=== PATIENT | female | born 1955 | race Caucasian/White ===

== ENCOUNTER 2019-08-08 09:43 | Outpatient (CLI) | payer BC, SELFPAY ==
--- NOTE | 2019-08-08 11:00 | NEURO_ITS ---
Patient Number: [id number] Impression: # Complains of left hand numbness. # Left Carpal Tunnel Syndrome. # No ulnar neuropathy. # Normal needle/EMG exam. Nerve Conduction Studies Anti Sensory Summary Table Stim Site NR Peak (ms) P-T Amp (?V) Site1 Site2 Delta-P (ms) Dist (cm) Franky (m/s) Left Median Anti Sensory (2-3nd Digit) Wrist 3.5 46.2 Wrist 2-3nd Digit 3.5 14.0 40 Wrist 3.7 42.2 Wrist 2-3nd Digit 3.5 14.0 40 Left Radial Anti Sensory (Base 1st Digit) Wrist 1.7 38.0 Wrist Base 1st Digit 1.7 0.0 Left Ulnar Anti Sensory (5th Digit) Wrist 2.0 47.7 Wrist 5th Digit 2.0 14.0 70 Motor Summary Table Stim Site NR Onset (ms) O-P Amp (mV) Site1 Site2 Delta-0 (ms) Dist (cm) Franky (m/s) Left Median Motor (Abd Poll Brev) Wrist 4.4 2.6 Elbow Wrist 5.1 27.0 53 Elbow 9.5 2.4 Left Ulnar Motor (Abd Dig Minimi) Wrist 1.9 5.9 A Elbow Wrist 4.4 28.0 64 A Elbow 6.3 5.9 F Wave Studies NR F-Lat (ms) L-R F-Lat (ms) Left Median (Mrkrs) (Abd Poll Brev) 27.91 Left Ulnar (Mrkrs) (Abd Dig Min) 24.57 EMG Side Muscle Nerve Root Ins Act Fibs Amp Dur Recrt Comment Left 1stDorInt Ulnar C8-T1 Nml Nml Nml Nml Nml Left Ext Indicis Radial (Post Int) C7-8 Nml Nml Nml Nml Nml Left Ext Digitorum Radial (Post Int) C7-8 Nml Nml Nml Nml Nml Left BrachioRad Radial C5-6 Nml Nml Nml Nml Nml Left PronatorTeres Median C6-7 Nml Nml Nml Nml Nml Left Abd Poll Brev Median C8-T1 Nml Nml Nml Nml Nml MTDD
== END 2019-08-08 09:44 | disposition home or self-care (01) ==
PROVIDERS: PCP Family Medicine; Visit Provider Surgery Plastic and Reconstructive Surgery
DX: G56.02 Carpal tunnel syndrome, left upper limb (principal)
CPT/HCPCS: 95886; 95909

== ENCOUNTER → 2020-05-21 14:09 | Outpatient (CLI) | payer BC, SELFPAY ==
--- NOTE | ~2020-05-21 | MM_ITS ---
EXAMINATION: MM screening rachell BI w bree HISTORY: Screening TECHNIQUE: Craniocaudal and mediolateral oblique 3-D tomosynthesis images were obtained and synthetic 2-D images were generated. CAD analysis was submitted and interpreted. COMPARISON: Comparison to multiple prior studies sequentially, with oldest reviewed study dated 04/15. BREAST PARENCHYMAL COMPOSITION: There are scattered areas of fibroglandular density. FINDINGS: There is no evidence of suspicious mass, calcification, or architectural distortion to sugg est malignancy in either breast. There has been no suspicious interval change. IMPRESSION: 1. No mammographic evidence of malignancy. 2. Recommend routine screening mammography in one year. BI-RADS Category 1: Negative Reviewed, dictated and finalized at location A. STMAS TREE FARMER
== END ==
PROVIDERS: PCP Family Medicine; Visit Provider Nurse Practitioner Family
DX: Z12.31 Encounter for screening mammogram for malignant neoplasm of breast (principal)
CPT/HCPCS: 77063; 77067

== ENCOUNTER 2020-08-19 11:34 | Outpatient (CLI) | payer MEDICARE, SELFPAY | END 2020-08-19 11:35 | disposition home or self-care (01) | LOC: ANHCOVIDVC 11:34 | PROVIDERS: PCP Family Medicine | DX: Z23 Encounter for immunization (principal) | CPT/HCPCS: 0001A; 91300 ==

== ENCOUNTER → 2020-08-22 08:36 | Outpatient (CLI) | payer MEDICARE, SELFPAY ==
--- NOTE | ~2020-08-22 | CT_ITS ---
EXAMINATION: CT lung screening DATE: 08/22/2020 08:54 INDICATION: Personal history of tobacco dependence, 40 pack year history TECHNIQUE: Computed tomography (CT) of the chest was performed without intravenous contrast. The dose -length product (DLP) was 68.56 mGy-cm. Automated exposure control and iterative reconstruction techn ique were employed. COMPARISON: None FINDINGS: Small nodules of the right upper lobe measure up to 2 mm. The lungs are free of acute opaci ties. There is mild emphysema. No pleural effusion or pneumothorax is identified. No pathologically e nlarged thoracic lymph nodes are identified. The heart size is normal. Calcified coronary artery athe rosclerosis is noted. There is mild thoracic spondylosis. IMPRESSION: 1. Lung-RADS category 1: Negative. Continue annual screening with noncontrast low-dose chest CT in 12 months. Reviewed, dictated and finalized at location A. OR SPECIALIST IMPRESSION: 1. Lung-RADS category 1: Negative. Continue annual screening with noncontrast l ow-dose chest CT in 12 months.
== END ==
PROVIDERS: PCP Family Medicine; Visit Provider Family Medicine
DX: Z12.2 Encounter for screening for malignant neoplasm of respiratory organs (principal); Z87.891 Personal history of nicotine dependence
CPT/HCPCS: 71271

== ENCOUNTER 2020-09-09 11:34 | Outpatient (CLI) | payer MEDICARE, SELFPAY | END 2020-09-09 11:35 | disposition home or self-care (01) | LOC: ANHCOVIDVC 11:34 | PROVIDERS: PCP Family Medicine | DX: Z23 Encounter for immunization (principal) | CPT/HCPCS: 0002A; 91300 ==

== ENCOUNTER 2020-11-06 14:04 | Outpatient (CLI) | payer MEDICARE, SELFPAY ==
--- NOTE | ~2020-11-06 | DEXA_ITS ---
Bone Density Report Name: Genna Vasquez Age: 65 Sex: Female Ethnicity: White Date of : 1955 Indication: postmenopausal; height loss; hysterectomy; Referring Provider: Kay Duran Study: Bone densitometry was performed. Exam Date: November 06, 2020 Accession number: [id number] Bone Density: Region BMD T-score Z-score Classification AP Spine (L1-L4) 1.040 -0.1 1.7 Normal Femoral Neck (Left) 0.649 -1.8 -0.3 Osteopenia Total Hip (Left) 0.803 -1.1 0.1 Osteopenia Total Hip Bilateral Avg 0.810 -1.1 0.2 Osteopenia Femoral Neck (Right) 0.661 -1.7 -0.2 Osteopenia Total Hip (Right) 0.816 -1.0 0.2 Normal World Health Organization criteria for BMD impression classify patients as: Normal (T-score at or above -1.0), Osteopenia (T-score between -1.0 and -2.5), or Osteoporosis (T-score at or below -2.5). 10-year Fracture Risk(1): Major Osteoporotic Fracture 9.6% Hip Fracture 1.2% Reported Risk Factors: [place] (), Neck BMD=0.649, BMI=27.2 (1) FRAX(R) Version 3.08. Fracture probability calculated for an untreated patient. Fracture probability may be lower if the patient has received treatment. Previous Exams: Region Exam Age BMD T-score BMD Change BMD Change Date g/cm2 vs Baseline vs Previous AP Spine(L1-L4) 11/06/2020 65 1.040 -0.1 0.041(4.1%)# 0.041(4.1%)# 01/09/2010 54 0.999 -0.4 Total Hip(Left) 11/06/2020 65 0.803 -1.1 -0.043(-5.1%)# -0.043(-5.1%)# 01/09/2010 54 0.847 -0.8 Total Hip(Right) 11/06/2020 65 0.816 -1.0 -0.072(-8.1%)# -0.072(-8.1%)# 01/09/2010 54 0.888 -0.4 *Denotes significance at 95% confidence level, LSC for AP Spine = 0.022 g/cm2, LSC for Total Hip = 0.027 g/cm2 Clinical Information Provided by Patient: Has used the following medications: Vitamin D, Calcium Has the following medical conditions: Hysterectomy Patient maximum height was 62 Menopause Age: 38 Drinks caffeinated beverages Onset of menses at age 15 Number of children 3 Impression: The patient has low bone mass, based on the Left Femoral Neck T-score. The patient has an estimated ten-year risk of hip fracture of 1.2% and an estimated ten-year risk of major fracture of 9.6%, based on the WHO FRAX algorithm. No significant bone loss was observed. Discussion: BONE DENSITY IS LOW AT ONE OR MORE SKELETAL SITES. This patient's lowest T-score is low at one or more skeletal sites. It meets the World Health Organization's (WHO) criteria
== END 2020-11-06 14:05 | disposition home or self-care (01) ==
LOC: ANHIMG 14:05
PROVIDERS: PCP Family Medicine; Visit Provider Family Medicine
DX: Z78.0 Asymptomatic menopausal state (principal); M85.852 Other specified disorders of bone density and structure, left thigh; M85.851 Other specified disorders of bone density and structure, right thigh
CPT/HCPCS: 77080

== ENCOUNTER → 2021-08-07 09:27 | Outpatient (CLI) | payer MEDICARE, SELFPAY ==
--- NOTE | ~2021-08-07 | MM_ITS ---
EXAMINATION: MM screening rachell BI w bree HISTORY: Screening mammogram TECHNIQUE: Craniocaudal and mediolateral oblique 3-D tomosynthesis images were obtained and synthetic 2-D images were generated. CAD analysis was submitted and interpreted. COMPARISON: 05/21/2020, 08/19/2018, 08/12/2017 bilateral screening mammogram examinations BREAST PARENCHYMAL COMPOSITION: The breasts are almost entirely fatty. FINDINGS: A new approximately 3.4 mm mass is noted in the upper outer left breast at mid depth. Diagn ostic left mammogram is recommended, with ultrasound if required. No suspicious new or developing density of either breast is noted otherwise. No malignant calcificati on, skin thickening or retraction or other significant change. IMPRESSION: 1. New approximately 3.4 mm mass in upper outer left breast 2. Diagnostic left mammogram is recommended, with ultrasound if required BI-RADS Category 0: Incomplete: Needs additional imaging evaluation. Reviewed, dictated and finalized at location A. VE TAILOR
== END ==
PROVIDERS: Visit Provider Family Medicine
DX: Z12.31 Encounter for screening mammogram for malignant neoplasm of breast (principal); R92.8 Other abnormal and inconclusive findings on diagnostic imaging of breast
CPT/HCPCS: 77063; 77067

== ENCOUNTER → 2021-08-21 09:43 | Outpatient (CLI) | payer MEDICARE, SELFPAY ==
--- NOTE | ~2021-08-21 | MMUS_ITS ---
EXAMINATION: MM diagnostic rachell LT w bree, US breast LT limited HISTORY: Follow-up left breast mass TECHNIQUE: Additional 3-D tomosynthesis images of the left breast were performed and synthetic 2-D im ages were generated. CAD analysis was submitted and interpreted. High resolution Limited left breast ultrasound was performed. COMPARISON: 08/07/2021 BREAST PARENCHYMAL COMPOSITION: Breast composed of scattered areas of fibroglandular density. FINDINGS: MAMMOGRAPHIC FINDINGS: There are no suspicious masses, calcifications or architectural distortion in the left breast to sugg est malignancy. ULTRASOUND: Limited left breast ultrasound: At 1:00, 6 cm from the nipple there is a 2 mm cyst. No suspicious mas ses to suggest malignancy. IMPRESSION: 1. No evidence for malignancy in the left breast. 2. Routine yearly screening mammogram and regular clinical breast examination are recommended. BI-RADS Category 2: Benign finding(s). Reviewed, dictated and finalized at location A. EF MASTER IMPRESSION: 1. No evidence for malignancy in the left breast. 2. Routine yearly screening mammogram and regular clinical breast examination a re recommended. BI-RADS Category 2: Benign finding(s).
== END ==
PROVIDERS: PCP Family Medicine; Visit Provider Family Medicine
DX: R92.8 Other abnormal and inconclusive findings on diagnostic imaging of breast (principal)
CPT/HCPCS: 76642; 77061; 77065; G0279

== ENCOUNTER 2022-02-05 09:17 | Outpatient (CLI) | payer MEDICARE, SELFPAY ==
[2022-02-05 18:59] LABS: Alanine Aminotransferase 23 U/L (6-35); Albumin Level 4.3 g/dL (3.5-5.1); Alkaline Phosphatase 55 U/L (38-126); Anion Gap 8 mmol/L (8-16); Aspartate Amino Transferase 32 U/L (14-36); Bilirubin,Total 0.6 mg/dL (0.2-1.3); Blood Urea Nitrogen 16 mg/dL (7-17); Calcium 8.7 mg/dL (8.4-10.2); Carbon Dioxide 28 mmol/L (22-30); Chloride 100 mmol/L (98-107); Estimated Glomerular Filt Rate > 60; Glucose 92 mg/dL (65-110); Potassium 4.4 mmol/L (3.4-5.0); Sodium 136 mmol/L (137-145)
== END 2022-02-05 09:18 | disposition home or self-care (01) ==
LOC: ANHGOSHLAB 09:20
PROVIDERS: PCP Family Medicine; Visit Provider Family Medicine
DX: G47.00 Insomnia, unspecified (principal); E78.5 Hyperlipidemia, unspecified; Z79.899 Other long term (current) drug therapy
CPT/HCPCS: 36415; 80053

== ENCOUNTER 2022-07-20 09:00 | Outpatient (NON) | payer MEDICARE, SELFPAY | END 2022-07-20 09:01 | disposition home or self-care (01) | LOC: ANHLAB 07-21 09:50 | PROVIDERS: PCP Family Medicine; Visit Provider Internal Medicine Gastroenterology | DX: Z12.11 Encounter for screening for malignant neoplasm of colon (principal); D12.6 Benign neoplasm of colon, unspecified | CPT/HCPCS: 88305 ==

== ENCOUNTER 2022-07-20 09:12 | Day surgery (SDC) | payer MEDICARE, SELFPAY ==
[2022-05-13 10:12] VITALS: BMI 28.0
[2022-07-01 12:59] VITALS: BMI 29.1
--- NOTE | 2022-07-20 07:25 | WPDANESEPPF ---
Anes - Initial Pre Proc Eval Procedure: Operation Date: 07/20/22 11:30 Proposed Procedures p Screening Colonoscopy - Cm Sanchez MD Date/Time: 07/20/22 07:25 Surgeon: Dionicio Delarosa MD Pre Op Diagnosis: Neoplasm Screening Patient Data Age: 66 Gender: F Height: 1.55 m Weight: 70 kg Allergies Allergy/AdvReac Type Severity Reaction Status Date / Time No Known Allergies Allergy Mild Verified 07/20/22 10:15 Home Medications Medication Instructions Recorded Confirmed Type famotidine 20 mg tablet 20 mg PO DAILY 03/04/20 07/20/22 History doxycycline hyclate 20 mg tablet 20 mg PO Q12H 07/31/20 07/20/22 History multivit with 1 tablet PO DAILY #30 tabs 08/26/20 07/20/22 Rx dsfsuvhw-vlwl-CV-lutein 8 mg iron-400 mcg-300 mcg tablet (Centrum Silver Women) cholecalciferol (vitamin D3) 25 25 mcg PO DAILY #30 caps 06/02/21 07/20/22 Rx mcg (1,000 unit) capsule ascorbate calcium (vitamin C) 500 500 mg PO DAILY 08/07/21 07/20/22 History mg tablet clobetasol 0.05 % topical cream 1 applic topical BID #30 grams 12/17/21 07/20/22 Rx oxybutynin chloride 15 mg See Rx Instructions .Route 07/03/22 07/20/22 Rx tablet,extended release 24 hr .COMPLEX #90 tabs simvastatin 40 mg tablet 40 mg PO QHS #90 tabs 07/03/22 07/20/22 Rx duloxetine 60 mg capsule,delayed 60 mg PO DAILY #90 caps 07/07/22 07/20/22 Rx release zolpidem 10 mg tablet 10 mg PO QHS #90 tabs 07/15/22 07/20/22 Rx Patient hx anesthesia problems: none Family hx anesthesia problems: none Results Review: All pre-operative results and documents have been reviewed as part of the pre-operative evaluation. [facility] Past Medical History Medical History (Updated 07/20/22 @ 07:26 by Todd Isbell DO) Cervical spondylosis Dental root implant present Depression Dyslipidemia GERD without esophagitis Insomnia OAB (overactive bladder) PRETTY (obstructive sleep apnea) Osteoarthrosis Periodontal disease, unspecified Vitamin D deficiency Surgical History Surgical History History of carpal tunnel release (~07/2019) Right History of delivery 1985 History of hysterectomy 1989 History of ovarian cystectomy 1977 Family History Family History Other Family history of cardiovascular disease Social History Social History Smoking packs per day: 1 Smoking cigarettes per day: 20.0 Years smoked: 40 Smoking pack-years: 40.00 Smoking status: Former smoker Tobacco type: cigarettes Second hand tobacco smoke exposure: No Smoking end date: 06/14/12 Alcohol intake: never Alcohol use details: NONE SINCE 2007 Substance use: never Substance use type: does not use Living arrangements: with family Additional living arrangements comments: With Occupation/Education: retired Gender identity (if verbalized by the patient): Female Spiritual care concerns: No Anes - Eval Final PreProcedure Day of Procedure 07/20/22 07:25 Patient weight: overweight Heart: regular rate and rhythm Lungs: clear to auscultation Airway: Mallampati scale class II Neurological: alert and oriented Last oral intake: >/= 8 hours ASA classification: III Emergent: no Anesthetic plan: proceed Anesthesia type and monitoring: general GIVS and standard monitoring Results Review: All pre-operative results and documents have been reviewed as part of the pre-operative evaluation. Informed Consent: The patient's anesthetic plan and its attendant risks and benefits were discussed with the patient/family/POA. Questions were solicited and answers provided to the satisfaction of the patient/family/POA.
[2022-07-20 10:05] VITALS: BP 119/89; PULSE 91; RESP 20; TEMP 36.1; O2SAT 100
[2022-07-20] MEDS: LACTATED RINGERS 1,000 ML 150 ML IV CONT (10:25)
--- NOTE | 2022-07-20 10:39 | PM.HPGS ---
History of Present Illness History of Present Illness Consent: Risks, benefits, and alternatives have been discussed and questions answered. Patient agrees to proceed with procedure. Chief complaint: Neoplasm Screening Narrative: Genna Vasquez is a 66 year old female Referred for colon cancer screening. Her mother had colon polyps. Review of Systems Review of Systems: All systems reviewed & are unremarkable except as noted in HPI and below PMFSH Past Medical History Medical History Cervical spondylosis Dental root implant present Depression Dyslipidemia GERD without esophagitis Insomnia OAB (overactive bladder) PRETTY (obstructive sleep apnea) Osteoarthrosis Periodontal disease, unspecified Vitamin D deficiency Surgical History Surgical History History of carpal tunnel release (~07/2019) Right History of delivery 1984 History of hysterectomy 1989 History of ovarian cystectomy 1977 Family History Family History Other Family history of cardiovascular disease Social History Social History Smoking packs per day: 1 Smoking cigarettes per day: 20.0 Years smoked: 40 Smoking pack-years: 40.00 Smoking status: Former smoker Tobacco type: cigarettes Second hand tobacco smoke exposure: No Smoking end date: 06/14/12 Alcohol intake: never Alcohol use details: NONE SINCE 2007 Substance use: never Substance use type: does not use Living arrangements: with family Additional living arrangements comments: With Occupation/Education: retired Gender identity (if verbalized by the patient): Female Spiritual care concerns: No Meds Home Medications and Allergies Home Medications Medication Instructions Recorded Confirmed Type famotidine 20 mg tablet 20 mg PO DAILY 03/04/20 07/20/22 History doxycycline hyclate 20 mg tablet 20 mg PO Q12H 07/31/20 07/20/22 History multivit with 1 tablet PO DAILY #30 tabs 08/26/20 07/20/22 Rx bkudrkif-jgsv-ZX-lutein 8 mg iron-400 mcg-300 mcg tablet (Centrum Silver Women) cholecalciferol (vitamin D3) 25 25 mcg PO DAILY #30 caps 06/02/21 07/20/22 Rx mcg (1,000 unit) capsule ascorbate calcium (vitamin C) 500 500 mg PO DAILY 08/07/21 07/20/22 History mg tablet clobetasol 0.05 % topical cream 1 applic topical BID #30 grams 12/17/21 07/20/22 Rx oxybutynin chloride 15 mg See Rx Instructions .Route 07/03/22 07/20/22 Rx tablet,extended release 24 hr .COMPLEX #90 tabs simvastatin 40 mg tablet 40 mg PO QHS #90 tabs 07/03/22 07/20/22 Rx duloxetine 60 mg capsule,delayed 60 mg PO DAILY #90 caps 07/07/22 07/20/22 Rx release zolpidem 10 mg tablet 10 mg PO QHS #90 tabs 07/15/22 07/20/22 Rx Allergies Allergy/AdvReac Type Severity Reaction Status Date / Time No Known Allergies Allergy Mild Verified 07/20/22 10:15 Vital Signs Vital Signs - 24 hr 07/20/22 10:05 Temperature 36.1 C L Pulse Rate 91 Respiratory Rate 20 Blood Pressure 119/89 Pulse Oximetry 100 Oxygen Delivery Room Air Exam Resp: Auscultation: clear to auscultation bilaterally Cardio: Rate: regular rate Rhythm: regular rhythm GI: GI Palp: Yes Soft to palpation and No Tenderness to palpation present (GI) Assessment and Plan Assessment and plan (1) Colon cancer screening: Code(s): Z12.11 - Encounter for screening for malignant neoplasm of colon Status: Acute Assessment and Plan: Colonoscopy with possible biopsy or polypectomy or cautery or injection of substances.
[2022-07-20 12:25] VITALS: BP 132/66; PULSE 88; RESP 16; O2SAT 97
[2022-07-20 12:35] VITALS: BP 121/64; PULSE 74; RESP 16; O2SAT 100
[2022-07-20 12:45] VITALS: BP 134/75; PULSE 70; RESP 16; O2SAT 100
--- NOTE | 2022-07-20 12:47 | SUR.PHASEII ---
PT AWAKE AND ALERT. EATING AND DRINKING. TALKATIVE. DENIES PAIN.
--- NOTE | 2022-07-20 13:04 | SUR.PHASEII ---
PT DRESSED AND RELAXING ON STRETCHER. AWAKE AND ALERT. DENIES PAIN. WAITING FOR SPOUSE TO ARRIVE
--- NOTE | 2022-07-20 13:50 | WPDANESPN ---
Anes - Prog Note Post-Op Date/Time: 07/20/22 13:50 Cardiovascular status: normal Respiratory status: normal Airway patency: baseline Mental status: baseline Post-Op hydration status: normal Vital Signs: Last Vital Signs Temp 36.1 C L 07/20/22 10:05 Pulse 70 07/20/22 12:45 Resp 16 07/20/22 12:45 BP 134/75 07/20/22 12:45 Pulse Ox 100 07/20/22 12:45 O2 Del Method Room Air 07/20/22 12:45 Pain Score (VAS): 0 I/O: Intake & Output 07/19/22 07/20/22 07/20/22 23:59 07:59 15:59 Intake Total 500 Balance 500 Post-procedural complaints: none Patient Feedback: Patient satisfied with anesthetic care. Other Findings: Patient vital signs back to baseline. Patient denies nausea and vomiting. Patient's pain under control. Patient OK for discharge.
== END 2022-07-20 13:19 | disposition home or self-care (01) ==
PROVIDERS: PCP Family Medicine; Visit Provider Internal Medicine Gastroenterology
PROC: 0DJD8ZZ Inspection of Lower Intestinal Tract, Via Natural or Artificial Opening Endoscopic (ICD-10-PCS; CPT 45378; principal; 2022-07-20 11:30)
DX: Z12.11 Encounter for screening for malignant neoplasm of colon (principal)
CPT/HCPCS: 45380

== ENCOUNTER → 2022-08-13 09:05 | Outpatient (CLI) | payer MEDICARE, SELFPAY ==
--- NOTE | ~2022-08-13 | XR_ITS ---
Clinical Indication: Cough PA and lateral views of the chest: Comparison: 01/02/2009 Findings: The lungs are clear, without evidence of focal consolidation or pleural effusion. Cardiome diastinal silhouette is within normal limits. Bones and soft tissues are unremarkable. Impression: Normal chest. Reviewed, dictated and finalized at [facility]. 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
== END ==
PROVIDERS: PCP Family Medicine; Visit Provider Nurse Practitioner Family
DX: R05.9 Cough, unspecified (principal)
CPT/HCPCS: 71046

== ENCOUNTER 2022-08-26 08:19 | Outpatient (CLI) | payer MEDICARE, SELFPAY ==
[2022-08-26 18:37] LABS: Kit Draw Collected
== END 2022-08-26 08:20 | disposition home or self-care (01) ==
LOC: ANHGOSHLAB 08:20
PROVIDERS: PCP Family Medicine; Visit Provider Nurse Practitioner Family
DX: E03.9 Hypothyroidism, unspecified (principal); E78.5 Hyperlipidemia, unspecified; I10 Essential (primary) hypertension
CPT/HCPCS: 36415

== ENCOUNTER 2023-01-04 07:20 | Outpatient (CLI) | payer MEDICARE, SELFPAY ==
--- NOTE | ~2023-01-04 | DEXA_ITS ---
Bone Density Report Name: KENJI HINOJOSA Age: 67 Sex: Female Ethnicity: White Date of : 1955 Indication: osteopenia; height loss; hysterectomy; Referring Provider: LEI, SURINDER Linares Study: Bone densitometry was performed. Exam Date: January 04, 2023 Accession number: [id number] Bone Density: Region BMD T-score Z-score Classification AP Spine(L1-L4) 1.034 -0.1 1.8 Normal Femoral Neck (Left) 0.618 -2.1 -0.4 Osteopenia Total Hip (Left) 0.798 -1.2 0.2 Osteopenia Femoral Neck (Right) 0.655 -1.7 -0.1 Osteopenia Total Hip (Right) 0.798 -1.2 0.2 Osteopenia Total Hip Mean 0.798 -1.2 0.2 Osteopenia World Health Organization criteria for BMD impression classify patients as: Normal (T-score at or above -1.0), Osteopenia (T-score between -1.0 and -2.5), or Osteoporosis (T-score at or below -2.5). 10-year Fracture Risk(1): Major Osteoporotic Fracture 11% Hip Fracture 1.9% Reported Risk Factors: [place] (), Neck BMD=0.618, BMI=28.5 (1) FRAX(R) Version 3.08. Fracture probability calculated for an untreated patient. Fracture probability may be lower if the patient has received treatment. Previous Exams: Region Exam Age BMD T-score BMD Change BMD Change Date g/cm2 vs Baseline vs Previous AP Spine (L1-L4) 01/04/2023 67 1.034 -0.1 -0.007 (-0.6%) -0.007 (-0.6%) 11/06/2020 65 1.040 -0.1 Total Hip(Left) 01/04/2023 67 0.798 -1.2 -0.006 (-0.7%) -0.006 (-0.7%) 11/06/2020 65 0.803 -1.1 Total Hip(Right) 01/04/2023 67 0.798 -1.2 -0.018 (-2.2%) -0.018 (-2.2%) 11/06/2020 65 0.816 -1.0 *Denotes significance at 95% confidence level, LSC for AP Spine = 0.022 g/cm2, LSC for Total Hip = 0.027 g/cm2 Clinical Information Provided by Patient: Has used the following medications: Vitamin D, Calcium Has the following medical conditions: Hysterectomy Patient maximum height was 62 Menopause Age: 38 Drinks caffeinated beverages Onset of menses at age 15 Number of children 3 Impression: The patient has low bone mass, based on the Left Femoral Neck T-score. The patient has an estimated ten-year risk of hip fracture of 1.9% and an estimated ten-year risk of major fracture of 11%, based on the WHO FRAX algorithm. No significant bone loss was observed. Discussion: BONE DENSITY IS LOW AT ONE OR MORE SKELETAL SITES. This patient's lowest T-score is low at one or more skeletal sites. It meets the World Health Organization's (WHO
--- NOTE | ~2023-01-04 | MM_ITS ---
EXAMINATION: MM screening [facility] BI w bree HISTORY: Screening mammogram TECHNIQUE: Craniocaudal and mediolateral oblique 3-D tomosynthesis images were obtained and synthetic 2-D images were generated. CAD analysis was submitted and interpreted. COMPARISON: 08/21/2021, 08/07/2021, 05/21/2020 BREAST PARENCHYMAL COMPOSITION: The breasts are almost entirely fatty. FINDINGS: No suspicious mass, calcification, or architectural distortion are identified in either tyra ast to suggest malignancy. There has been no suspicious interval change. IMPRESSION: 1. No mammographic evidence of malignancy. 2. Recommend routine screening mammography in one year. BI-RADS Category 1: Negative Reviewed, dictated and finalized at location A.
== END 2023-01-04 07:21 | disposition home or self-care (01) ==
PROVIDERS: PCP Family Medicine; Visit Provider Family Medicine
DX: Z12.31 Encounter for screening mammogram for malignant neoplasm of breast (principal); Z78.0 Asymptomatic menopausal state; M85.852 Other specified disorders of bone density and structure, left thigh; M85.851 Other specified disorders of bone density and structure, right thigh
CPT/HCPCS: 77063; 77067; 77080

== ENCOUNTER 2024-10-16 11:32 | Outpatient (CLI) | payer MEDICARE, SELFPAY ==
--- NOTE | ~2024-10-16 | CT_ITS ---
CT Scan of the Chest without Contrast: Clinical Indication: Lung cancer screening, nicotine dependence Technique: Contiguous sections were acquired throughout the chest without intravenous contrast. Dose reduction technique was used on this scan by utilizing automated exposure control and iterative recon struction technique. The dose-length product (DLP) was 75.97 mGy-cm. COMPARISON: 08/22/2020 Findings: There is no evidence of any significant mediastinal, hilar or axillary lymphadenopathy. The mediastin al soft tissues appear normal. There is no evidence of pleural or pericardial effusion. 7 mm left upper lobe pulmonary nodule present (axial image 49), new from prior exam. Images through the upper abdomen reveal no abnormalities. Impression: Lung RADS 4A: Suspicious. 3 month follow-up CT recommended. Reviewed, dictated and finalized at location . Impression: Lung RADS 4A: Suspicious. 3 month follow-up CT recommended.
--- OUTSIDE RECORDS SUMMARY | 2024-10-16 12:22 | XMS_ITS | Clinical Summary ---
Author Organization [facility] Address [address] [place] [id number] Care Team Providers Care District Administrative Assistant Name Role Phone Jesse Duran MD Primary Care Provider Allergies No known active allergies Medications naproxen sodium (ALEVE) 220 MG tablet Take 1 tablet (220 mg total) by mouth 2 (two) times daily with meals. Active Immunizations Immunization Administration Dates Next Due Tdap (Boostrix) 11/02/2022 Social History Tobacco Use Types Packs/Day Years Used Date Smoking Tobacco: Former Cigarettes Smokeless Tobacco: Never Tobacco Cessation:Counseling Given: Not Answered Alcohol Use Standard Drinks/Week Comments Not Currently 0 (1 standard drink = 0.6 oz pur e alcohol) Comments Unknown Sex and Gender Information Value Date Recorded Sex Assigned at Not on file Legal Sex Female 5:12 PM CDT Gender Identity Not on file Sexual Orientation Not on file Last Filed Vital Signs Vital Sign Reading Time Taken Comments Blood Pressure 163/101 11/02/2022 4:03 PM CDT Pulse 75 11/02/2022 4:03 PM CDT Temperature 36.7 C (98.1 F) 11/02/2022 4:03 PM CDT Respiratory Rate 16 11/02/2022 4:03 PM CDT Oxygen Saturation 97% 11/02/2022 4:03 PM CDT Inhaled Oxygen Concentration - - Weight 68 kg (150 lb) 11/02/2022 4:03 PM CDT Height 154.9 cm (5' 1 ) 11/02/2022 4:03 PM CDT Body Mass Index 28.34 11/02/2022 4:03 PM CDT Plan of Treatment Health Maintenance Due Date Last Done Comments Colorectal Cancer Screening Colonoscopy (10 Years) 1955 Hepatitis C 1973 Mammogram Screening 1995 Annual Medicare Wellness Visit 2020 Dexa Scan (General) 2020 COVID-19 Vaccine ( - 2023- season) 2024 04/21/2022, 01/29/2022, 03/11/2021, Additional history exists RSV Immunization or 60+ Years (1 - 1-dose 75+ series) 2030 DTaP, Tdap and Td Vaccines (4 - Td or Tdap) 11/02/2032 11/02/2022, 07/14/2016, 01/06/2006, Additional history exists Zoster Vaccines Completed 02/27/2019, 12/23/2018 Pneumococcal Vaccine: 50+ Years Completed 04/01/2022, 01/27/2021 Meningococcal B Vaccine Aged Out No l onger eligible based on patient's age to complete this topic Meningococcal Vaccine Aged Out No chrissie martín eligible based on patient's age to complete this topic RSV Immunizations Under 20 Months Aged Out No longer eligible based on patient's age to complete this topic Insurance [facility] Care Teams District Administrative Assistant Relationship Specialty Start Date End Date Jesse Duran MD [id number] [facility] [address] [place] [address] PCP - General FAMILY PRACTICE 11/02/22
== END 2024-10-16 11:33 | disposition home or self-care (01) ==
PROVIDERS: PCP Family Medicine; Visit Provider Family Medicine
DX: Z12.2 Encounter for screening for malignant neoplasm of respiratory organs (principal); Z87.891 Personal history of nicotine dependence; R91.8 Other nonspecific abnormal finding of lung field
CPT/HCPCS: 71271

== ENCOUNTER 2024-11-22 13:47 | Outpatient (CLI) | payer MEDICARE, SELFPAY | END 2024-11-22 13:48 | disposition home or self-care (01) | LOC: ANHAUDASC 13:48 | PROVIDERS: PCP Family Medicine; Visit Provider Family Medicine | DX: H93.13 Tinnitus, bilateral (principal); H90.3 Sensorineural hearing loss, bilateral; H74.8X1 Other specified disorders of right middle ear and mastoid; H69.81 Other specified disorders of Eustachian tube, right ear | CPT/HCPCS: 92557; 92567 ==

== ENCOUNTER 2025-01-16 07:48 | Outpatient (CLI) | payer MEDICARE, SELFPAY ==
--- NOTE | ~2025-01-16 | CT_ITS ---
Clinical Indication: Pulmonary embolus CT Scan of the Chest with Contrast: Technique: Contiguous sections were acquired throughout the chest after intravenous administration of 75 cc of Omnipaque 350. Dose reduction technique was used on this scan by utilizing automated exposu re control and iterative reconstruction technique. The dose-length product (DLP) was 151.09 mGy-cm. COMPARISON: 10/16/2024 Findings: Left axillary lymphadenopathy is present, mildly increased from prior exam.. There is no filling defe ct in the pulmonary arterial tree to suggest pulmonary embolus. There is no evidence of aortic dissec tion or aneurysm. There is no evidence of pleural or pericardial effusion. Stable 7 mm left upper lobe pulmonary nodule (axial image 55). Images through the upper abdomen reveal no abnormalities. Impression: Left axillary lymphadenopathy. Correlate for metastatic disease versus inflammatory lymph nodes. Stable 7 mm left upper lobe pulmonary nodule. Reviewed, dictated and finalized at [facility]. Impression: Left axillary lymphadenopathy. Correlate for metastatic disease versus inflamma tory lymph nodes. Stable 7 mm left upper lobe pulmonary nodule.
--- OUTSIDE RECORDS SUMMARY | 2025-01-16 07:51 | XMS_ITS | Clinical Summary ---
Author Organization [facility] Address [address] [place] [id number] Care Team Providers Care Pulverizer Name Role Phone Jesse Duran MD Primary [...] 4:03 PM CDT Height 154.9 cm (5' 1) 11/02/2022 4:03 PM CDT Body Mass Index [...] patient's age to complete this topic Insurance [facility] Care Teams Pulverizer Relationship Specialty Start Date End Date Jesse Duran MD [id number] [facility] [address] [place] [address] PCP - General FAMILY PRACTICE 11/02/22
[2025-01-16 08:17] LABS: Estimated Glomerular Filt Rate > 60
== END 2025-01-16 07:49 | disposition home or self-care (01) ==
PROVIDERS: PCP Family Medicine; Visit Provider Family Medicine
DX: R59.0 Localized enlarged lymph nodes (principal); R91.1 Solitary pulmonary nodule
CPT/HCPCS: 71260; Q9967

== ENCOUNTER 2025-02-14 10:05 | Outpatient (CLI) | payer MEDICARE, SELFPAY ==
--- NOTE | ~2025-02-14 | MMUS_ITS ---
EXAMINATION: US axilla LT, MM diagnostic rachell BI w bree HISTORY: Left axillary lymphadenopathy identified in a chest CT from 01/16/2025 TECHNIQUE: [Additional images of both breasts]] were performed using full field digital mammography. 3-D tomosynthesis were also obtained and synthetic 2-D images were generated. CAD analysis was submitted and interpreted. High resolution left axillary ultrasound was performed.] ] COMPARISON: Chest CT 01/16/2025; mammograms 01/04/2023 and 08/07/2021 BREAST PARENCHYMAL COMPOSITION: The breasts are almost entirely fatty FINDINGS: MAMMOGRAPHIC FINDINGS: No specific calcifications, masses or architectural distortion ULTRASOUND: There is an enlarged left axillary lymph node measuring 1.3 x 1.6 x 2.0 cm with loss of the fatty hilum. There is a 1.9 x 1.1 x 1.8 cm mildly enlarged left axillary lymph node with eccentric cortical thickening measuring 5 mm. There is a 1.1 x 1.1 x 0.9 cm nonenlarged left axillary lymph node with loss of the fatty hilum. There is a nonenlarged 2.5 x 2.3 x 0.8 cm left axillary lymph node with cortical thickening measuring 9 mm IMPRESSION/RECOMMENDATION: 1. Enlarged left axillary lymph nodes. An ultrasound-guided biopsy of the largest left axillary lymph node is recommended. 2. No mammographic evidence for malignancy. BIRADS 4-Suspicious Protocol insures that results of the study are called and/or faxed to the referring clinician's office and documented in the patient's chart critical findings protocol. Reviewed, dictated and finalized at location Q. IMPRESSION/RECOMMENDATION: 1. Enlarged left axillary lymph nodes. An ultrasound-guided biopsy of the large st left axillary lymph node is recommended. 2. No mammographic evidence for malignancy. BIRADS 4-Suspicious Protocol insures that results of the study are called and/or faxed to the refer ring clinician's office and documented in the patient's chart critical findings protocol. IMPRESSION/RECOMMENDATION: 1. Enlarged left axillary lymph nodes. An ultrasound-guided biopsy of the large st left axillary lymph node is recommended. 2. No mammographic evidence for malignancy. BIRADS 4-Suspicious Protocol insures that results of the study are called and/or faxed to the refer ring clinician's office and documented in the patient's chart critical findings protocol.
--- OUTSIDE RECORDS SUMMARY | 2025-02-14 11:15 | XMS_ITS | Clinical Summary ---
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
== END 2025-02-14 10:06 | disposition home or self-care (01) ==
LOC: ANHFOHIMG 10:07
PROVIDERS: PCP Family Medicine; Visit Provider Family Medicine
DX: R59.0 Localized enlarged lymph nodes (principal); N63.32 Unspecified lump in axillary tail of the left breast; R92.8 Other abnormal and inconclusive findings on diagnostic imaging of breast
CPT/HCPCS: 76882; 77062; 77066; G0279

== ENCOUNTER 2025-03-09 10:31 | Outpatient (CLI) | payer MEDICARE, SELFPAY ==
--- NOTE | 2025-03-09 10:38 | ECG_ITS ---
Test Date: 2025-03-09 11:01:58 Measurements Intervals [place] Rate: 91 P: 61 WY: 155 QRS: 28 QRSD: 92 T: 46 QT: 352 QTc: 433 Interpretive Statements SINUS RHYTHM LOW QRS VOLTAGE IN PRECORDIAL LEADS [QRS DEFLECTION < 1.0 mV IN CHEST LEADS] WARNING: DATA QUALITY MAY AFFECT INTERPRETATION No previous ECG available for comparison Electronically Signed On 03-09-2025 20:07:48 CDT by Kathleen Mckeon M.D.
--- OUTSIDE RECORDS SUMMARY | 2025-03-09 10:38 | XMS_ITS | Clinical Summary ---
Author Organization [facility] Address [address] [place] [address] Care Team Providers Care Policy Adviser Name Role Phone Jesse Duarn MD Primary Care Provider Allergies No known active allergies Medications calcium carbonate/vitam in D3 (CALCIUM 600 WITH VITAMIN D3 ORAL) Take by mouth 5 Active multivitamin-ir on-folic acid 18-400 mg-mcg tablet Take 1 tablet by mouth 5 Active clobetasoL (TEMOVATE) 0.05 % ointment Apply topically [address] (CYMBALTA) 60 mg capsule Take 1 capsule (60 mg total) by mouth 5 Active famotidine (PEPCID) 20 mg tablet Take 1 tablet (20 mg total) by mouth 0 Active ferrous sulfate 325 mg (65 mg of elemental iron) tablet Take 1 tablet (325 mg total) by mouth 5 Active naproxen (ALEVE) 220 mg tablet Take 1 tablet (220 mg total) by mouth 5 Active oxyBUTYnin XL (DITROPAN XL) 15 mg 24 hr tablet Take 1 tablet (15 mg total) by mouth 5 Active simvastatin (ZOCOR) 40 mg tablet Take 1 tablet (40 mg total) by mouth 5 Active zolpidem (AMBIEN) 10 mg tablet Take by mouth 5 Active Encounters Date Type Department Care Team Description 03/02/2025 Telephone [facility] [address] [place] [address] Jennifer Claire, JENAE 02/27/2025 12:24 PM CDT - 02/27/2025 11:59 PM CDT Hospital Encounter [facility] [address] [place] [address] 2, Amh Rad Rn Rad, [facility] Breast Localized enlarged lymph nodes Discharge Disposition: Discharge to home or self care 02/23/2025 Telephone [facility] [address] [place] [address] Jennifer Claire, JENAE 02/22/2025 2:50 PM CDT Ancillary Procedure [facility] Outside Films Abnormal mammogram 02/22/2025 Telephone [facility] [address] [place] [address] Jennifer Claire RN 02/14/2025 10:45 AM CDT Ancillary Procedure [facility] Outside Films 02/14/2025 10:25 AM CDT Ancillary Procedure [facility] Outside Films 01/16/2025 8:10 AM CDT Ancillary Procedure [facility] Outside Films from Last 3 Months Surgical History Surgery Date Site/Laterality Comments HYSTERECTOMY W/ BILATERAL SALPINGOOPHORECTOMY 06/14/1986 - 06/13/1987 Bilateral TONSILLECTOMY as kid BREAST BIOPSY 02/27/2025 N/A Medical History Medical History Date Comments Osteoarthritis Depression High cholesterol Acid reflux Social History Tobacco Use Types Packs/Day Years Used Date Smoking Tobacco: Never Assessed Comments Unknown Sex and Gender Information Value Date Recorded Sex Assigned at Not on file 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 Gender Identity Not on file Sexual Orientation Not on file Obstetrics History Last Filed Vital Signs Vital Sign Reading Time Taken Comments Blood Pressure 136/95 02/27/2025 12:50 PM CDT Pulse 81 02/27/2025 12:50 PM CDT Temperature 36 C (96.8 F) 02/27/2025 12:50 PM CDT Respiratory Rate 14 02/27/2025 12:50 PM CDT Oxygen Saturation - - Inhaled Oxygen Concentration - - Weight 66.7 kg (147 lb) 02/27/2025 12:50 PM CDT Height 154.9 cm (5' 1) 02/27/2025 12:50 PM CDT Body Mass Index 27.78 02/27/2025 12:50 PM CDT Plan of Treatment Health Maintenance Due Date Last Done Comments Breast Cancer Screening-Mammogram 1955 Colon Cancer Screening-Colonoscopy 1955 Depression Screening 1955 Fall Risk Assessment 1955 Hepatitis C Screening 1955 Osteoporosis Screening-Bone Density Scan 1955 Well Visit 65+ 2020 Covid-19 Vaccine (2023-2 5 season) 2025 05/05/2024, 04/21/2022, 01/29/2022, Additional history exists DTaP/Tdap/Td Vaccine (4 - Td or Tdap) 11/02/2032 11/02/2022, 07/14/2016, 01/06/2006, Additional history exists Hepatitis B Screening Completed 12/13/1992 , 04/19/1992, 03/19/1992 Zoster Vaccine Completed 02/27/2019, 12/23/2018 Pneumococcal vaccine 65+ Completed 04/01/2022, 01/12 Influenza Vaccine Completed 01/31/2025, , 03/31/2022, Additional history exists Medical Devices Implanted Type Area Grievance Manager Device Identifier Shelf Expiration Date Model / Serial / Lot Bard Peripheral Vascular Ultraclip Bard 17ga 10cm 2 Trigger Permanent Ultrasound [id number] - [id number] - [id number] Implanted:Qty: 1 on 02/27/2025 by Donell Walker MD at [facility] Breast Left: Breast [employer] Peripheral Vascular [id number] 03/11/2027 [id number] / [id number] / Description:US left axillary lymph node biopsy; breast related. Cores x6 Procedures Procedure Name Priority Date/Time Associated Diagnosis Comments SURGICAL PATHOLOGY Routine 02/27/2025 2: 04 PM CDT Localized enlarged lymph nodes US GUIDED BREAST BIOPSY LYMPH NODE SUPERFICIAL BREAST RELATED - BILATERAL Schedule Routine, Read Routine (OP Routine) 02/27/2025 1:44 PM CDT Localized enlarged lymph nodes BREAST IMAGING MG DIAGNOSTIC OUTSIDE CONSULT Routine 02/22/2025 2:46 PM CDT Abnormal mammogram US TRANSFER OF OUTSIDE FILMS Routine 02/14/2025 10:45 AM CDT BREAST IMAGING MG DIAGNOSTIC OUTSIDE REFERENCE Routine 02/14/2025 10:[address] BODY OUTSIDE REFERENCE Routine 01/16/2025 8:10 AM CDT from Last 3 Months Results * Surgical pathology (02/27/2025 2:04 PM CDT) Tissue (Lymph node, needle biopsy) 02/27/2025 1:36 PM CDT Narrative [facility] - 03/01/2025 3:16 PM CDT EPIC results best viewed via link to PDF [facility] Department of Pathology [address] [place] [address] Note to Patients: This report may contain a detailed description of human tissue sent by a health care provider to the laboratory for pathologic evaluation. The content of this report is essential for diagnosis and may provide important critical findings. This information may be unfamiliar to patients to review without a medical professional present. It is advised that the patient review this report in the presence of a health care provider who can answer questions and explain the details. Final Report Patient Name: GENNA VASQUEZ Address: [address] [place] [address] Gender: F : 1955 (Age: 69) Service: Location: [facility] : [id number] Hospital #: [id number] Patient Type: [facility] EP ANCILLARY Taken: 02/27/2025 Received: 02/27/2025 Accessioned: 02/27/2025 Reported: 03/01/2025 Physician(s):Donell Walker MD Diagnosis: Lymph node, left axillary, biopsy -Cores and core fragments of lymph node -No evidence of malignancy -See description Brigido Ortiz MD PhD Report Electronically Reviewed and Signed Out By Brigido Ortiz MD PhD 03/01/2025 15:16:50 Specimen(s) Received: A: US left axillary lymph node biopsy, breast related, cores x 6 Microscopic Description: Sections from the left axillary lymph node biopsy specimen show multiple cores and core fragments of lymph node. A CKAE1/AE3 stain is performed and shows no keratin positive lesion. Lymphoid markers are performed and highlight scattered CD3 / CD5 positive T-cells and CD20 positive B-cells. CD20 positive B-cells appear to be mildly increased over the CD3 and CD5 positive T-cells and additional immunohistochemical stains are performed. A CD10 stain highlights focal germinal centers while BCL-2, BCL-6, cyclin D1 and Ki-67 show a benign pattern of staining. In-situ hybridization studies for kappa and lambda light chain are also performed and show both kappa and lambda staining with no monoclonal population identified. There is no evidence of metastatic carcinoma or a lymphoproliferative process. The case was shown as a QA to Dr. Calderon and Dr. De Anda. If there is strong clinical/radiographic concern for malignancy then rebiopsy or excisional biopsy with a portion sent fresh for flow cytometric analysis could be considered. Clinical/radiographic correlation is required. Clinical History: Localized enlarged lymph nodes. US left axillary lymph node biopsy. Gross Description: The specimen is submitted in a single formalin filled container labeled GENNA VASQUEZ and U/S left axillary lymph node biopsy; breast related. Cores x6. It is wispy garza-pink needle cores, 1.2 x 0.6 x 0.3 cm in aggregate. All in one cassette. Misti Corley/Meka Calderon M.D. REPORT IMAGES AND SCANNED DOCUMENTS, IF INCLUDED, ONLY VIEWABLE IN PDF VERSION OF REPORT The performance characteristics of some immunohistochemical stains, fluorescence in-situ hybridization tests and immunophenotyping by flow cytometry cited in this report (if any) were determined by the Surgical Pathology Department at [facility] as part of an ongoing machined parts quality inspector program and in compliance with federally mandated regulations drawn from the Clinical Laboratory Improvement Act of 1988 (CLIA '88). Some of these tests rely on the use of analyte specific reagents and are subject to specific labeling requirements by the US Food and Drug Administration. Such diagnostic tests may only be performed in a facility that is certified by the Department of Health and Human Services as a high complexity laboratory under CLIA '88. The FDA has determined that such clearance or approval is not necessary. This test is used for clinical purposes. It should not be regarded as investigational or for research. Nevertheless, federal rules concerning the medical use of analyte specific reagents require that the following disclaimer be attached to the report: This test was developed and its performance characteristics determined by the Surgical Pathology Department [facility]. It has not been cleared or approved by the U. S. Food and Drug Administration. Note for decalcified specimens: This assay has not been validated on decalcified tissues. Results should be interpreted with caution given the possibility of false negativity on decalcified specimens us Jesse Duran MD LAB PATHOLOGY ORDERABL ES Final Result PATHOLOGY [facility] [address] [place], [place] [id number] * US Guided Biopsy Lymph Node Superficial Breast Related (02/27/2025 1:44 PM CDT) Anatomical Region Laterality Modality Breast N/A Ultrasound 02/27/2025 2:06 PM CDT Addenda Addendum by Donell Walker MD on 03/02/2025 12:08 PM CDT Pathology returns as cores and core fragments of lymph node, no evidence of malignancy. This is radiologically discordant. Surgical excision is recommended. Dr. Duran's office was notified of the biopsy results and recommended follow-up by Jennifer Claire RN on 03/02/2025. Electronically signed by: Donell Walker M.D. Impressions 02/27/2025 2:06 PM CDT Successful core needle biopsy of an enlarged left axillary lymph node utilizing sonographic guidance. Pathology is pending. Electronically signed by: Donell Walker M.D. Narrative 02/27/2025 2:06 PM CDT EXAMINATION: LEFT AXILLARY LYMPH NODE CORE NEEDLE BIOPSY UTILIZING SONOGRAPHIC GUIDANCE, WITH PLACEMENT OF A TISSUE MARKER CLIP HISTORY: Left axillary lymphadenopathy. Ultrasound guided tissue sampling is requested to evaluate for malignancy. COMPARISON: Outside bilateral diagnostic mammogram and left axilla ultrasound dated 02/14/2025. Outside CT chest dated 01/16/2025. PROCEDURE AND FINDINGS: The risks and potential benefits of the procedures were discussed with the patient and written informed consent was obtained. A timeout was performed. After sterile preparation of the left axilla skin, 1% lidocaine was utilized for local anesthesia. A small skin incision was made with a #11 scalpel blade. An 18G spring-loaded biopsy needle was then advanced through the skin incision into an enlarged left lymph node from a lateral approach utilizing sonographic guidance. A total of 6 tissue cores were obtained. A ribbon-shaped tissue marker clip was then placed at the biopsy site. The patient tolerated the procedure well. Hemostasis was achieved. A sterile bandage and an ice pack were applied. There was no evidence of significant immediate complication. The patient was given both verbal and written post procedural instructions prior to release from the department. The specimen was submitted to surgical pathology in formalin for histologic analysis. Jesse Duran MD [facility] MAMMO PROCEDURES E dited Result - Final * (ABNORMAL) Breast Imaging DX Outside Consult (02/22/2025 2:46 PM CDT) Anatomical Region Laterality Modality Breast N/A Mammography 02/22/2025 4:35 PM CDT Impressions 02/22/2025 4:35 PM CDT Multiple Abnormal lymph nodes in the left axilla, suspicious for metastatic disease or, less likely given the unilaterality, a primary lymphoid process including lymphoma or leukemia. Ultrasound-guided core biopsy is recommended. BI-RADS 4-suspicious for malignancy. Tissue diagnosis is recommended. Electronically signed by: Idalmis Branch M.D. Narrative 02/22/2025 4:35 PM CDT PROCEDURE: BREAST IMAGING DIAGNOSTIC CONSULTATION ON OUTSIDE IMAGES. REASON FOR EXAM: BI-RADS 4 outside study COMPARISONS: Outside breast imaging dated February 14. Chest CT from January 16. FINDINGS: No abnormality is seen mammographically. There are multiple lymph nodes with cortical thickening seen in the left axilla. These were also seen on the chest CT from January. Jesse Duran MD [facility] MAMMO PROCEDURES F inal Result * US Outside Reference (02/14/2025 10:45 AM CDT) Narrative [facility] - 02/21/2025 11:22 AM CDT This order has been auto-finalized and does not contain a result. us Not In File Miscellaneous IMG US PROCEDURES Darline l Result Performing Organization Address City/[facility] Co de Phone Number [facility] * Breast Imaging Diagnostic Outside Reference (02/14/2025 10:25 AM CDT) Narrative [facility] - 02/21/2025 11:24 AM CDT This order has been auto-finalized and does not contain a result. us Not In File Miscellaneous IMG MAMMO PROCEDURES F inal Result Performing Organization Address [facility] Co de Phone Number [facility] * CT Body Outside Reference (01/16/2025 8:10 AM CDT) Narrative [facility] - 02/21/2025 11:27 AM CDT This order has been auto-finalized and does not contain a result. us Not In File Miscellaneous IMG CT PROCEDURES Darline l Result Performing Organization Address [facility] Co de Phone Number [facility] from Last 3 Months Insurance [facility] [place] [address] Care Teams Policy Adviser Relationship Specialty Start Date End Date Jesse Duran MD [address] [place] [address] DR HERNANDEZ [address] [place] [id number] PCP - General Family Practice 02/20/25
[2025-03-09 11:57] LABS: Hematocrit 38.5 % (37.0-47.0); Hemoglobin 12.7 g/dL (12.0-15.0)
== END 2025-03-09 10:32 | disposition home or self-care (01) ==
PROVIDERS: Anesthesiology; PCP Family Medicine; Visit Provider Surgery
DX: R94.31 Abnormal electrocardiogram [ECG] [EKG] (principal); E78.00 Pure hypercholesterolemia, unspecified; Z78.9 Other specified health status
CPT/HCPCS: 36415; 85014; 85018; 93005

== ENCOUNTER 2025-03-15 00:28 | Day surgery (SDC) | payer MEDICARE, SELFPAY ==
--- NOTE | 2025-03-09 08:14 | PC.NURSE ---
[facility] has started construction of its new state of the art ER which will open Spring 2026. With this, we anticipate parking may be a challenge for some our surgical patients and families. Parking spaces are limited but are available for all Surgical, obstetrics, and ER patients sharing this lot. If you arrive and find you are having a hard time finding a parking space, please note that we understand the challenges, please drive around the hospital and park near Hospital Entrance 1. When you enter this entrance, you can ask a volunteer to direct or take you back to the surgical waiting area to check in. We appreciate everyone?s understanding of these expected challenges while we build for your future. Report to the Outpatient Waiting Room, entrance under the green pavilion located off [address], at time __6:30 AM on date _03/15/25 . Planned Procedure Time: __8:30 AM .? Time changes happen often and if your time is changed the preop area will call you the afternoon before. - You and your visitor will be asked to self-screen and do not enter if you have any COVID symptoms. Please call surgeon if you need to reschedule. - A mask is optional within the hospital at this time. Patients may have clear liquids (water, carbonated beverages, clear teas, apple juice) until 3 hours prior to surgery ( 5:30 AM) with a maximum of 20 ounces. - No food from midnight until time of surgery and no smoking, or chewing tobacco (or any form of nicotine). No chewing gum, candy or mints. - Take only the following medications with a SIP of water on the morning of surgery: ____DULOXETINE DO NOT STOP ANY OF YOUR OTHER PRESCRIPTION MEDICATIONS PRIOR TO SURGERY EXCEPT THE FOLLOWING Hold all vitamins and supplements for 3 days per anesthesiologist.LAST DOSE 03/11/25 Medications to discontinue per physician NONE Please no make-up, nail lithuanian, hairspray, perfume, deodorant, or body powder the day of surgery.? No jewelry (including any body piercings) or valuables the day of surgery, leave them at home.? Please take a shower or bath the night before, or the morning of, surgery with an antibacterial soap.? Wear comfortable, loose fitting clothing.? Children are encouraged to wear pajamas. - Jewelry must be removed prior to entering the operating room.? Rings and piercings that are not removed may be cut off. - The hospital will not accept responsibility for valuables.? - Please leave all valuables, including medications, at home the day of surgery. If you are going home after surgery, a licensed dedicated truck driver must drive you home.? - NO public transportation without another adult if you receive anesthesia. - We recommend that an adult stay with you for 24 hours following discharge. - We also recommend that you do not drive, make important decision, drink alcoholic beverages, or take any drugs that were not prescribed by your health care provider for at least 24 hours after your discharge time. Follow any additional instructions given to you from your surgeon. Telephone instructions given to PATIENT and asked if any additional questions and then verbalized understanding. Patient advised to call surgeon office or pre surgery nurse liaison [phone] if any additional questions.
[2025-03-09 08:34] VITALS: BMI 28.3
[2025-03-15] VITALS (7 sets, daily range): BP systolic 95–143; BP diastolic 50–89; PULSE 83–88; RESP 14–16; TEMP 36.2–36.4; O2SAT 94–99
[2025-03-15] MEDS: LACTATED RINGERS 1,000 ML 30 ML IV CONT ×2 (07:00→09:46)
[2025-03-15] MEDS: ACETAMINOPHEN 500 MG TABLET 1000 MG PO (07:00)
--- NOTE | 2025-03-15 07:35 | WPDHPUPDATE1 ---
History and Physical Update Update Date/Time: 03/15/25 07:35 - Excisional biopsy of left axillary lymph node. History and Physical has been reviewed, including an updated exam of the patient. There are NO changes in the patient's condition. Risks, benefits, and alternatives have been discussed and questions answered. Patient agrees to proceed with procedure.
--- NOTE | 2025-03-15 08:15 | WPDANESEPPF ---
Anes - Initial Pre Proc Eval Procedure: Operation Date: 03/15/25 08:30 Proposed Procedures p Excisional Biopsy Left Axillary Lymph Node - Cheri Mercado MD Date/Time: 03/15/25 08:15 Surgeon: Cheri Mercado MD Pre Op Diagnosis: left axillary lymphadenopathy Pre Op Diagnosis: axillary lymphadenopathy Patient Data Age: 69 Gender: F Height: 1.55 m Weight: 67.6 kg Last Vital Signs Temp 36.4 C L 03/15/25 07:36 Pulse 88 03/15/25 07:36 Resp 16 03/15/25 07:36 BP 143/89 H 03/15/25 07:36 Pulse Ox 97 03/15/25 07:36 O2 Del Method Room Air 03/15/25 07:36 Allergies Allergy/AdvReac Type Severity Reaction Status Date / Time No Known Allergies Allergy Mild Verified 03/09/25 08:15 Home Medications ?Medication ?Instructions ?Recorded ?Confirmed ?Type famotidine 20 mg tablet 20 mg PO DAILY 03/04/20 03/09/25 History inhaler,assist devices,access #1 ea 08/13/22 12/28/24 Rx Calcium 1200 PO DAILY 08/17/24 12/28/24 History duloxetine 60 mg capsule,delayed 60 mg PO DAILY #100 caps 08/17/24 03/15/25 Rx release ferrous sulfate 325 mg (65 mg 325 mg PO 3XW 08/17/24 03/09/25 History iron) tablet naproxen sodium 220 mg tablet 220 mg PO Q12H 08/17/24 03/09/25 History (Aleve) oxybutynin chloride 15 mg 15 mg PO DAILY #100 tabs 08/17/24 03/09/25 Rx tablet,extended release 24 hr simvastatin 40 mg tablet 40 mg PO QHS #100 tabs 08/17/24 03/09/25 Rx zolpidem 10 mg tablet See Rx Instructions PO QHS PRN 08/17/24 03/09/25 Rx insomnia #90 tabs Calcium with Vitamin D3 1 mg PO DAILY 12/27/24 03/09/25 History clobetasol 0.05 % topical ointment 1 applic topical BID PRN itching 12/27/24 03/09/25 History multivitamin-ferrous 1 tablet PO DAILY 12/27/24 03/09/25 History fumarate-folic acid 18 mg-400 mcg tablet (Centrum) ECG: SR 91 Patient hx anesthesia problems: none Family hx anesthesia problems: none Results Review: All pre-operative results and documents have been reviewed as part of the pre-operative evaluation. [facility] Past Medical History Medical History Osteopenia Former smoker Chronic pain of right knee PRETTY (obstructive sleep apnea) Vitamin D deficiency Cervical spondylosis Depression Insomnia Dyslipidemia GERD without esophagitis OAB (overactive bladder) Periodontal disease, unspecified Dental root implant present Osteoarthrosis Surgical History Surgical History History of carpal tunnel release (~07/2019) Right History of hysterectomy 1989 History of ovarian cystectomy 1978 History of delivery 1985 Family History Family History Mother Cerebrovascular accident Other Family history of cardiovascular disease Social History Social History Smoking packs per day: 1 Smoking cigarettes per day: 20.0 Years smoked: 40 Smoking pack-years: 40.00 Smoking status: Former smoker Tobacco type: cigarettes Second hand tobacco smoke exposure: No Smoking end date: 08/12/12 Alcohol intake: never Alcohol use details: NONE SINCE 2007 Substance use: never Substance use type: does not use Do You Feel Safe in your Home?: Yes Lack of Transportation: No Lack of Food: Never True Current Housing: I Have Housing Concerned About Future Housing: No Difficulty Paying Gas/Electric Bills: No Difficulty Paying for Meds: No Currently Unemployed: No Education: Bachelor's Degree Difficulty w/ Childcare or Family Care: No Living arrangements: with family Additional living arrangements comments: With 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 Informed Consent: The patient's anesthetic plan and its attendant risks and benefits were discussed with the patient/family/POA. Questions were solicited and answers provided to the satisfaction of the patient/family/POA.
[2025-03-15] MEDS: ceFAZolin 2 GM in SODIUM CHLORIDE 0.9% IV 50 ML 100 ML IVPB (08:21)
[2025-03-15] MEDS: LIDOCAINE 1% LOCAL INJ 20 ML VIAL 4 ML INFILTRATE (08:50)
[2025-03-15] MEDS: BUPIVACAINE/EPINEPHRINE 0.5% 30 ML VIAL 4 ML INFILTRATE (08:50)
--- NOTE | 2025-03-15 09:11 | S_PTH ---
PATIENT: Genna Vasquez LOC: [facility] U#:[id number] AGE/SX: 69/F ROOM: RE03/15/[address]: Cheri Mercado MD : 1955 BED: DIS: 03/15/2025 SPEC #: [id number] RECD: 03/15/25 09:27 STATUS: TRISTEN REGoldie #: [id number] JUDITH: 03/15/25 09:[address]: Cheri Mercado DEPT: [facility] Surgical RECD BY: Adelita Salcedo MLT, ([facility]) ENTERED: 03/15/25 09:28 SP TYPE: Surgical OTHR DR: Jesse Duran MD Tissues: A - Lymph Node Biopsy Procedures: Unstained Slides Hematoxylin and Eosin Stain Gross and Microscopic Level 4 Flow Cytometry
--- NOTE | 2025-03-15 09:16 | SUR.OPER ---
left axillary lymph node biopsy sent fresh to lab at 0916 for flow cytometry and pathology. Excision time 913. Specimen sent to lab @ 0916 by RITESH Brizuela; received in lab @ 0919 by
--- NOTE | 2025-03-15 09:36 | W.PM.PROC2 ---
Procedure Note - Detailed Date of Procedure 03/15/25 Pre-op Diagnosis Left axillary lymphadenopathy Post-op Diagnosis Same Procedure Performed Excisional biopsy of left axillary lymph node Surgeon Cheri Mercado MD Anesthesia MAC Description of Procedure patient was identified in the preoperative holding area brought to the operating room suite. She was laid supine in the OR table and sequential compression devices were applied. Anesthesia was induced without difficulty. The left axillary area was prepped and draped in a sterile fashion. I was able to palpate an enlarged lymph node and a small incision was made overlying this area. Dissection was carried down through the subcutaneous tissue and the clavipectoral fascia was encountered and open. The lymph node was gently grasped and excised with the LigaSure device. This lymph node was quite enlarged and either had a lobulated shape or there were 2 lymph node fused together. The lymph node was sent to pathology as a fresh specimen for surgical analysis and flow cytometry. The cavity was irrigated with saline and hemostasis was assured. FloSeal was placed in the cavity for extra hemostasis and the clavipectoral fascia was approximated with a running 3-0 Vicryl suture. The deep dermal layer was then closed with interrupted 3-0 Vicryl followed by the skin with a 4-0 Monocryl in a subcuticular fashion. Dermabond was applied with Steri-Strips followed by a compression dressing. Patient was awoken from anesthesia and taken to the recovery area in stable condition. All needles, instruments, and sponge counts were correct as reported by the operating room staff. Patient tolerated the procedure well with no immediate complications. Estimated Blood Loss 5 Pathology Yes Complications No immediate complications Condition Stable Disposition PACU [facility] Billing Surgery - Charge Forward: Surgery Billing (CPT 10265)
== END 2025-03-15 11:14 | disposition home or self-care (01) ==
PROVIDERS: PCP Family Medicine; Visit Provider Surgery
PROC: (CPT 38525; principal; 2025-03-15 08:30)
DX: R59.0 Localized enlarged lymph nodes (principal); E78.5 Hyperlipidemia, unspecified; K21.9 Gastro-esophageal reflux disease without esophagitis; N32.81 Overactive bladder; G47.33 Obstructive sleep apnea (adult) (pediatric); E55.9 Vitamin D deficiency, unspecified; M43.02 Spondylolysis, cervical region; F32.A Depression, unspecified; M85.88 Other specified disorders of bone density and structure, other site; G89.29 Other chronic pain; M25.561 Pain in right knee; G47.00 Insomnia, unspecified; M19.90 Unspecified osteoarthritis, unspecified site; Z79.1 Long term (current) use of non-steroidal anti-inflammatories (NSAID); Z98.890 Other specified postprocedural states; Z87.891 Personal history of nicotine dependence; Z82.49 Family history of ischemic heart disease and other diseases of the circulatory system
CPT/HCPCS: 38525; 88184; 88305; J0690; A9270; J1100; J2003; J2250; J2405; J2704; J3010; J7120

== ENCOUNTER 2025-03-28 14:26 | Outpatient (CLI) | payer MEDICARE, SELFPAY ==
--- NOTE | ~2025-03-28 | US_ITS ---
Clinical history:Localized enlarged lymph nodes. Left axillary lymph node removed in the beginning of March 2025. EXAM:Ultrasound axilla left TECHNIQUE:Multiple static grayscale images and color images were obtained of the area of concern in the left axilla. Comparisons:Ultrasound left axilla 02/14/2025 FINDINGS: There is a 6.4 x 8.4 x 4.0 cm anechoic structure in the left axilla. No internal color Doppler flow. No posterior acoustic shadowing. IMPRESSION: 1.There is a 6.4 x 8.4 x 4.0 cm anechoic structure in the left axilla. The finding probably represents a fluid collection secondary to removal of a left axillary lymph node. A follow-up left axillary ultrasound in 1 to 2 weeks is recommended to assess for interval change. Recommend follow-up to resolution. BI-RADS 3-Probably benign-Short interval follow-up suggested. Reviewed, dictated and finalized at location Q. IMPRESSION: 1.There is a 6.4 x 8.4 x 4.0 cm anechoic structure in the left axilla. The find ing probably represents a fluid collection secondary to removal of a left axill chirstos lymph node. A follow-up left axillary ultrasound in 1 to 2 weeks is recomme nded to assess for interval change. Recommend follow-up to resolution. BI-RADS 3-Probably benign-Short interval follow-up suggested.
--- OUTSIDE RECORDS SUMMARY | 2025-03-28 16:47 | XMS_ITS | Clinical Summary ---
Author Organization [facility] Address [address] [place] [id number] Care Team Providers Care Automatic Punch Press Operator Name Role Phone Jesse Duran MD Primary [...] 2025 04/21/2022, 01/29/2022, 03/11/2021, Additional history exists Influenza Adult (#1) 2025 02/12/2020 RSV Immunization or 60+ Years (1 - [...] patient's age to complete this topic Insurance [place] [address] Care Teams Automatic Punch Press Operator Relationship Specialty Start Date End Date Jesse Duran MD [address] [facility] [address] [place] [address] PCP - General FAMILY PRACTICE 11/02/22
--- OUTSIDE RECORDS SUMMARY | 2025-03-28 16:47 | XMS_ITS | Clinical Summary ---
Author Organization [facility] Address [address] [place] [address] Care Team Providers Care Forest Engineer Name Role Phone Unavailable Primary Care Provider Unavailabl e Source Comments [facility],non-owned Affiliates and Associated Physician Practices is amultiple site organization consisting of ambulatory clinics and hospital sitesin [place], [place], [place] and [place]. This disclosure is being madepursuant to the Care Everywhere program and may not contain all information available regarding this patient. Last updated 18.[facility] Encounters Date Type Department Care Team Description 03/16/2025 Lab Requisition [facility] - Pathology Lab [address] [place] [phone] Moises Villatoro MD Illness, unspecified 03/15/2025 Lab Requisition [facility] - Pathology Lab [address] [place] [phone] Moises Villatoro MD Localized enlarged lymph nodes from Last 3 Months Social History Tobacco Use Types Packs/Day Years Used Date Smoking Tobacco: Never Assessed Comments Unknown Sex and Gender Information Value Date Recorded Sex Assigned at Not on file 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 Gender Identity Not on file Sexual Orientation Not on file Plan of Treatment Health Maintenance Due Date Last Done Comments BONE DENSITY TESTING 1955 COLOGUARD (AGES 45-75) - COL ON CA SCREENING 1955 COLON MONITORING 1955 COLONOSCOPY - COLON CA SCREENING 1955 CT COLONOGRAPHY - COLON CA SCREENING 1955 Colorectal Cancer Screening 1955 FIT - COLON CA SCREENING 1955 FLEX SIG - COLON CA SCREENING 1955 LIPID TESTING 1955 MAMMOGRAM 1955 HEPATITIS C SCREENING 08/01/1973 DTAP/TDAP/TD VACCINES (1 - Tdap) 1974 PNEUMOCOCCAL VACCINE 50+ (1 of 1 - PCV) 2005 ZOSTER VACCINE (1 of 2) 2005 DEPRESSION SCREENING 06/14/2024 MEDICARE AWV CALENDAR YEAR 2024 COVID-19 VACCINE (1 - 2023-2 5 season) 2025 INFLUENZA VACCINE (#1) 2025 Respiratory Syncytial Virus (RSV) Vaccine Pt: or over 60 yrs (1 - 1-dose 75+ series) 2030 HEPATITIS B VACCINE Aged Out No longe r eligible based on patient's age to complete this topic HIB VACCINE Aged Out No longer eligi ble based on patient's age to complete this topic HPV VACCINE Aged Out No longer eligi ble based on patient's age to complete this topic MENINGOCOCCAL (Group B) VACC INE SHARED DECISION-MAKING Aged Out No longer eligibl e based on patient's age to complete this topic MENINGOCOCCAL GROUPS A/C/Y/W VACCINE Aged Out No longer eligible b ased on patient's age to complete this topic Procedures Procedure Name Priority Date/Time Associated Diagnosis Comments PATHOLOGY TISSUE Routine 03/15/2025 9:40 AM CDT Illness, unspecified FLOW CYTOMETRY TISSUE PANEL Routine 03/15/2025 9:40 AM CDT Localized enlarged lymph nodes from Last 3 Months Results * PATHOLOGY TISSUE (03/15/2025 9:40 AM CDT) Case Report Surgical Pathology Report Case: [id number] Authorizing Provider: Moises Villatoro MD Collected: 03/15/2025 09:40 AM Ordering Location: [facility] - Received: 03/16/2025 02:42 PM Pathology Lab Pathologist: Krysten Stevenson MD Specimen: Lymph Node Biopsy 03/21/2025 10:26 AM CDT [facility] Final Diagnosis Lymph node, left axillary, excision: - Monocytoid B-cell proliferation in a background of follicular lymphoid hyperplasia; B-cell gene rearrangement analysis pending with addendum to follow (see comment) 03/21/2025 10:26 AM CDT [facility] at 1026 CDT Microscopic Description and Comment Sections of the left axillary lymph node show an enlarged lymph node with overall preserved architecture. Lymphoid follicles are seen throughout the lymph node consistent with follicular hyperplasia. The follicles contain germinal centers with tingible body macrophages and are associated with polarized marginal zones. Overall sinuses are patent, but in areas a sinusoidal infiltrate of somewhat monotonous appearing lymphocytes are noted. The monocytoid lymphocytes are slightly enlarged over background paracortical lymphocytes, display more open chromatin, small and variably prominent nucleoli, and moderate clear cytoplasm. The morphology and pattern of infiltration is typical of a benign, monocytoid B-cell proliferation. The lymphoid tissue is largely confined to the lymph node without significant extension beyond the capsule. Immunohistochemistry and in situ hybridization stains with reactive controls are performed on the lymph node to further characterize the population. Immunohistochemistry stains are performed in addition to flow cytometry to evaluate the lymph node architecture. CD20, PAX5, and CD79a highlight lymphoid follicles and the previously described monocytoid lymphocytes. The germinal centers are CD10 and BCL6 positive and are negative for Bcl-2. Bcl-2 highlights the monocytoid B-cells less intensely than the surrounding lymphocytes. CD23 and CD21 highlight follicular dendritic meshworks which are largely intact. Monocytoid B cells are weakly positive for CD23 and CD21. CD3 and CD5 highlight paracortical lymphocytes in roughly equal percentage and distribution. There is no significant aberrant CD5 coexpression by B cells. CD30 highlights rare, scattered immunoblasts. Cyclin D1 highlights only rare scattered cells, and EBV in situ hybridization is negative. [place] and lambda immunohistochemistry stains highlight a polyclonal population of plasma cells. C-Myc is positive in 5% or less of total nuclei with slightly increased expression in the monocytoid B cells. A Ki-67 stain highlights the expected increased proliferation index of the germinal centers and is more prominently expressed in the monocytoid B cells. The Ki-67 pattern overall favors a benign process. 03/21/2025 10:26 AM [facility] Clinical History Lymphadenopathy 03/21/2025 10:26 AM [facility] AP Comment Flow cytometry of th e lymph node identified a lambda predominant population (kappa:lambda ratio 0.7) of B-cells with CD23 expression ([id number]). In conjunction with the morphologic features, this population of cells is favored to represent a reactive/benign monocytoid B-cell proliferation. However, to exclude the possibility of partial involvement of the lymph node by lymphoma, B-cell gene rearrangement molecular analysis is pending. A polyclonal B-cell population would corroborate the morphologic impression of benignity whereas a clonal B-cell gene rearrangement is typically associated with B-cell lymphoproliferative disorders. The results of B-cell gene rearrangement analysis will be reported upon completion. 03/21/2025 10:26 AM [facility] Materials Received Received are 11 slide(s) labeled and 11 block(s) [id number] along with a copy of the outside pathology report. [place] [address] . All original materials are returned to the referring institution, along with a copy of our final report. 03/21/2025 10:26 AM [facility] Pathologist Location at [facility] 03/21/2025 10:26 AM [facility] Disclaimer The performance characteristics of all immunohistochemical and indirect immunofluorescence stains (if any) cited in this report were determined by the Histopathology Laboratory of [facility]. Some of these tests were developed by our own laboratory and have not been cleared or approved by the US Food and Drug Administration. The FDA does not require this test to go through premarket FDA review. These tests are used for clinical purposes. They should not be regarded as investigational or for research. This laboratory is certified under the Clinical Laboratory Improvement Amendments (CLIA) as qualified to perform high complexity clinical laboratory testing. This case has been personally reviewed and interpreted by the attending (teaching) pathologist. 03/21/2025 10:26 AM [facility] Embedded Images 03/21/2025 10:26 AM [facility] Pathology/Cytolo gy BIOPSY OF LYMPH NODE / Unknown 03/15/2025 9:40 AM CDT 03/16/2025 2:42 PM CDT us Moises Villatoro MD LAB - PATHOLOGY/CYTOLOGY ORDERAB LES Final Result [facility] [address] [place] [address], [facility] [phone] * FLOW CYTOMETRY TISSUE PANEL (03/15/2025 9:40 AM CDT) Case Report Flow Cytometry Case: [id number] Authorizing Provider: Moises Villatoro MD Collected: 03/15/2025 09:40 AM Ordering Location: [facility] - Received: 03/15/2025 12:56 PM Pathology Lab Pathologist: Dilan Pandya MD Specimen: Lymph Node 03/15/2025 3:03 PM CDT [facility] Final Diagnosis Lymph node, flow cytometry: - Lambda light chain predominant B-cell population, suspicious for a clonal B-cell population (~60% of overall events) 03/15/2025 3:03 PM CDT [facility] at 1503 CDT Flow Cytometry Interpretation Viability: 58% B-cells: lambda excess, with partial co-expression of CD23. No significant expression of CD5 or CD10. T-cells: no immunophenotypic aberrancy detected CD4:CD8 ratio 3:1 Overall findings are highly suspicious for a B-cell lymphoma. The immunophenotype suggests marginal zone lymphoma. Large B-cell lymphoma cannot be entirely excluded. Histologic correlation is pending. A cytospin prepared from the flow cytometry specimen has been reviewed for production quality analyst purposes. 03/15/2025 3:03 PM CDT [facility] Flow Cytometry Results Differential Result Comment Flow Cell Count /uL 64,800 Total Viability % 58.0 Lymphocytes % 95 Dim CD45 Region % 2 Monocytes % 0 Granulocytes % 3 03/15/2025 3:03 PM CDT [facility] Reason for test Localized enlarged lymph nodes 785.6 03/15/2025 3:03 PM CDT [facility] Client Specimen ID # [id number] 03/15/2025 3:03 PM CDT [facility] Number of markers 17 were performed. A-2 Flow CD10 A-4 Flow CD20 A-5 Flow CD23 A-10 Flow CD2 A-11 Flow CD3 A-12 Flow CD4 A-16 Flow CD1a A-3 Flow CD19 A-6 Flow CD34 A-7 Flow CD45 A-13 Flow CD5 A-14 Flow CD7 A-15 Flow CD8 A-17 Flow CD30 A-8 Rosemount+CD19+ A-9 Lambda+CD19+ 03/15/2025 3:03 PM CDT [facility] Pathologist Location at [facility] 03/15/2025 3:03 PM CDT [facility] Disclaimer Test performed at [facility], [address] [place], [place], [address]. *The established laboratory minimum viability is 70%. Values below the minimum may result in the failure to find an abnormal population of cells. This test was developed and its performance characteristics determined by the Flow Cytometry Laboratory. It has not been cleared by the [place] Food and Drug Administration (FDA). The FDA has determined that such clearance or approval is not necessary. This test is used for clinical purposes. It should not be regarded as investigational or for research. This laboratory is regulated under the Clinical Laboratory Improvement Amendments of 1998 (CLIA) as a qualified to perform high complexity clinical testing. 03/15/2025 3:03 PM CDT [facility] Embedded Images 3:03 PM CDT [facility] Pathology/Cytolo gy ENTIRE LYMPH NODE / Unknown 03/15/2025 9:40 AM CDT 03/15/2025 12:56 PM CDT Moises Villatoro MD LAB - PATHOLOGY/CYTOLOGY ORDERAB LES Final Result [facility] [address] [facility] [place] [address], [facility] [phone] from Last 3 Months Insurance [facility] MANAGED MEDICARE ADV [facility] MANAGED MEDICARE ADV [facility] MANAGED MEDICARE ADV SELF PAY NO INSURANCE Member Subscriber Plan / Payer (Ef fective for All Dates) Name:Genna Vasquez Member ID:Not on file Relation to Subscriber:Not on file Name:PEDROGENNA Subscriber ID:Not on file (Home) Address: [address] [place] [address] Payer ID:Not on file Group ID:Not on file Type:Self Pay Address: [place], [place]
--- OUTSIDE RECORDS SUMMARY | 2025-03-28 16:47 | XMS_ITS | Encounter Summary ---
Author Organization [facility] Address [address] [place] [address] Care Team Providers Care Leaf Binner Name Role Phone Unavailable Primary Care Provider Unavailabl e Encounter Details Date Type Department Care Team (Late st Contact Info) Description 03/16/2025 Lab Requisition [facility] - Pathology Lab [address] [place] [address] Moises Villatoro MD [address] [phone] Illness, unspecified Social History Tobacco Use Types Packs/Day Years Used Date Smoking Tobacco: Never Assessed Comments Unknown Sex and Gender Information Value Date Recorded Sex Assigned at Not on file 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 - Received: 03/16/2025 02:42 PM Pathology Lab Pathologist: Krysten Stevenson MD Specimen: Lymph Node Biopsy 03/21/2025 10:26 AM CDT [facility] Final Diagnosis Lymph node, left axillary, excision: - Monocytoid B-cell proliferation in a background of follicular lymphoid hyperplasia; B-cell gene rearrangement analysis pending with addendum to follow (see comment) 03/21/2025 10:26 AM [facility] at 1026 CDT Microscopic Description [...] and EBV in situ hybridization is negative. [place] and lambda immunohistochemistry stains highlight a polyclonal [...] favors a benign process. 03/21/2025 10:26 AM [facility] Clinical History Lymphadenopathy 03/21/2025 10:26 AM [facility] AP Comment Flow cytometry of th e lymph node identified a lambda predominant population (kappa:lambda ratio 0.7) of B-cells with CD23 expression ([id number]). In conjunction with the morphologic features, this [...] be reported upon completion. 03/21/2025 10:26 AM [facility] Materials Received Received are 11 slide(s) labeled and 11 block(s) [id number] along with a copy of the outside pathology report. [place] [address] . All original materials are returned to the referring institution, along with a copy of our final report. 03/21/2025 10:26 AM [facility] Pathologist Location at [facility] 03/21/2025 10:26 AM [facility] Disclaimer The performance characteristics of all immunohistochemical and indirect immunofluorescence stains (if any) cited in this report were determined by the Histopathology Laboratory of [facility]. Some of these tests were developed [...] the attending (teaching) pathologist. 03/21/2025 10:26 AM [facility] Embedded Images 03/21/2025 10:26 AM [facility] Pathology/Cytolo gy BIOPSY OF LYMPH NODE / Unknown 03/15/2025 9:40 AM CDT 03/16/2025 2:42 PM CDT us Moises Villatoro MD LAB - PATHOLOGY/CYTOLOGY ORDERAB LES Final Result [facility] [address] [facility] [place] [address], [facility] [phone] documented in this encounter Visit Diagnoses Diagnosis Illness, unspecified documented in this encounter
--- OUTSIDE RECORDS SUMMARY | 2025-03-28 16:47 | XMS_ITS | Clinical Summary ---
Author Organization [facility] Address 1 [place] [address] Care Team Providers Care Back Shoe Worker Name Role Phone Jesse Duran MD Primary [...] Type Department Care Team Description 03/02/2025 Telephone [facility] 1 [place] [address] Jennifer Claire, JENAE 02/27/2025 12:24 PM CDT - 02/27/2025 11:59 PM CDT Hospital Encounter [facility] 1 [place] [address] 2, Amh Rad Rn Rad, Amh Breast Localized enlarged lymph nodes Discharge Disposition: Discharge to home or self care 02/23/2025 Telephone [facility] [address] [place] [address] Jennifer Claire, JENAE 02/22/2025 2:50 PM CDT Ancillary Procedure [facility] Outside Films Abnormal mammogram 02/22/2025 Telephone [facility] 1 [place] [address] Jennifer Claire RN 02/14/2025 10:45 AM CDT [...] on file 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 Gender Identity Not on file Sexual [...] history exists Medical Devices Implanted Type Area Cushion Gum Applicator Device Identifier Shelf Expiration Date Model / Serial / Lot Bard Peripheral Vascular Ultraclip Bard 17ga 10cm 2 Trigger Permanent Ultrasound [id number] - [id number] - [id number] Implanted:Qty: 1 on 02/27/2025 by Donell Walker MD at [facility] Breast Left: Breast Bard Peripheral Vascular [id number] 03/11/2027 [id number] / [id number] / Description:US left axillary lymph node biopsy; [...] biopsy) 02/27/2025 1:36 PM CDT Narrative PATHOLOGY [facility] - 03/01/2025 3:16 PM CDT EPIC results best viewed via link to PDF [facility] Department of Pathology [address] [place] [address] Note to Patients: This report may contain [...] Final Report Patient Name: GENNA VASQUEZ Address: [address] [place] [address] Gender: F : 1955 (Age: 69) Service: Location: [facility] : [id number] Hospital #: [id number] Patient Type: [facility] EP ANCILLARY Taken: 02/27/2025 Received: 02/27/2025 Accessioned: [...] determined by the Surgical Pathology Department at [facility] as part of an ongoing senior quality manager program and in compliance with federally mandated [...] characteristics determined by the Surgical Pathology Department [facility]. It has not been cleared or approved by the U. S. Food and Drug Administration. Note for decalcified specimens: This assay has not been validated on decalcified tissues. Results should be interpreted with caution given the possibility of false negativity on decalcified specimens us Jesse Duran MD LAB PATHOLOGY ORDERABL ES Final Result PATHOLOGY [facility] ([place]) [address] [place], [place] [id number] * US Guided Biopsy Lymph Node Superficial [...] formalin for histologic analysis. Jesse Duran MD [facility] MAMMO PROCEDURES E dited Result - Final [...] chest CT from January. Jesse Duran MD [facility] MAMMO PROCEDURES F inal Result * US Outside Reference (02/14/2025 10:45 AM CDT) Narrative [facility] - 02/21/2025 11:22 AM CDT This order has been auto-finalized and does not contain a result. us Not In File Miscellaneous IMG US PROCEDURES Darline l Result Performing Organization Address City/[facility] Co de Phone Number [facility] * Breast Imaging Diagnostic Outside Reference (02/14/2025 10:25 AM CDT) Narrative [facility] - 02/21/2025 11:24 AM CDT This order has been auto-finalized and does not contain a result. us Not In File Miscellaneous IMG MAMMO PROCEDURES F inal Result Performing Organization Address [facility] Co de Phone Number [facility] * CT Body Outside Reference (01/16/2025 8:10 AM CDT) Narrative [facility] - 02/21/2025 11:27 AM CDT This order has been auto-finalized and does not contain a result. us Not In File Miscellaneous IMG CT PROCEDURES Darline l Result Performing Organization Address [facility] Co de Phone Number [facility] from Last 3 Months Insurance [facility] MEDICARE ADVANTAGE Care Teams Back Shoe Worker Relationship Specialty Start Date End Date Jesse Duran MD [address] [place] [address] DR HERNANDEZ [address] [place] [address] PCP - General Family Practice 02/20/25
--- OUTSIDE RECORDS SUMMARY | 2025-03-28 16:47 | XMS_ITS | Encounter Summary ---
Author Organization [facility] Address [address] [place] [address] Care Team Providers Care Forklift Operator Name Role Phone Unavailable Primary Care Provider Unavailabl e Encounter Details Date Type Department Care Team (Late st Contact Info) Description 03/15/2025 Lab Requisition [facility] - Pathology Lab [address] [place] [address] Moises Villatoro MD [address] [address] Localized enlarged lymph nodes Social History Tobacco Use Types Packs/Day Years Used Date Smoking Tobacco: Never Assessed Comments Unknown Sex and Gender Information Value Date Recorded Sex Assigned at Not on file 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 Gender Identity Not on file Sexual Orientation Not on file documented as of this encounter Plan of Treatment Not on file documented as of this encounter Procedures Procedure Name Priority Date/Time Associated Diagnosis Comments FLOW CYTOMETRY TISSUE PANEL Routine 03/15/2025 9:40 AM CDT Localized enlarged lymph nodes documented in this encounter Results * FLOW CYTOMETRY TISSUE PANEL (03/15/2025 9:40 AM CDT) Case Report Flow Cytometry Case: [id number] Authorizing Provider: Moises Villatoro MD Collected: 03/15/2025 09:40 AM Ordering Location: [facility] - Received: 03/15/2025 12:56 PM Pathology Lab Pathologist: Dilan Pandya MD Specimen: Lymph Node 03/15/2025 3:03 PM CDT [facility] Final Diagnosis Lymph node, flow cytometry: - Lambda light chain predominant B-cell population, suspicious for a clonal B-cell population (~60% of overall events) 03/15/2025 3:03 PM [facility] at 1503 CDT Flow [...] flow cytometry specimen has been reviewed for senior quality assurance engineer purposes. 03/15/2025 3:03 PM [facility] Flow Cytometry Results Differential Result Comment Flow Cell Count /uL 64,800 Total Viability % 58.0 Lymphocytes % 95 Dim CD45 Region % 2 Monocytes % 0 Granulocytes % 3 03/15/2025 3:03 PM [facility] Reason for test Localized enlarged lymph nodes 785.6 03/15/2025 3:03 PM [facility] Client Specimen ID # [id number] 03/15/2025 3:03 PM [facility] Number of markers 17 were performed. A-2 Flow CD10 A-4 Flow CD20 A-5 Flow CD23 A-10 Flow CD2 A-11 Flow CD3 A-12 Flow CD4 A-16 Flow CD1a A-3 Flow CD19 A-6 Flow CD34 A-7 Flow CD45 A-13 Flow CD5 A-14 Flow CD7 A-15 Flow CD8 A-17 Flow CD30 A-8 [place]+CD19+ A-9 Lambda+CD19+ 03/15/2025 3:03 PM [facility] Pathologist Location at [facility] 03/15/2025 3:03 PM [facility] Disclaimer Test performed at [facility], [address] [place] [address], [address]. *The established laboratory minimum viability is 70%. [...] complexity clinical testing. 03/15/2025 3:03 PM CDT [facility] PATH[facility] Embedded Images 3:03 PM CDT [facility] Pathology/Cytolo gy ENTIRE LYMPH NODE / Unknown 03/15/2025 9:40 AM CDT 03/15/2025 12:56 PM CDT us Moises Villatoro MD LAB - PATHOLOGY/CYTOLOGY ORDERAB LES Final Result [facility] [address] [phone] documented in this encounter Visit Diagnoses Diagnosis Localized enlarged lymph nodes Enlargement of lymph nodes documented in this encounter
== END 2025-03-28 14:27 | disposition home or self-care (01) ==
LOC: ANHFOHIMG 14:27
PROVIDERS: PCP Family Medicine; Visit Provider Surgery
DX: R93.89 Abnormal findings on diagnostic imaging of other specified body structures (principal); R59.0 Localized enlarged lymph nodes
CPT/HCPCS: 76882

== ENCOUNTER 2025-04-03 09:24 | Outpatient (CLI) | payer MEDICARE, SELFPAY ==
--- NOTE | ~2025-04-03 | US_ITS ---
EXAMINATION: US_BCALIMG_US INDICATION: 69 year old female with postsurgical fluid collection in the left axilla presents for ultrasound-guided aspiration procedure. TECHNIQUE: Survey imaging of the left axilla was performed. The fluid collection at in the left axilla is targeted for aspiration. The procedure and its risk and benefits were discussed with the patient. Risks included but were not limited to pain, bleeding and infection. The patient verbalized unde rstanding and provided written consent. A time-out was performed to document the patient's name, date of , and site of procedure. The left axilla of the patient was prepped and draped in usual sterile fashion. 1% lidocaine was used for local anesthesia. Utilizing ultrasound guidance, a 18-gauge needle was advanced into the fluid collection in the left axilla. Aspiration was performed. 12 mL of cloudy fluid was aspirated. The patient tolerated procedure without immediate complication. Sterile bandages were applied over the aspiration site(s).] IMPRESSION: 1. Successful aspiration of left axillary postsurgical fluid collection. Reviewed, dictated and finalized at location B.
--- OUTSIDE RECORDS SUMMARY | 2025-04-03 10:44 | XMS_ITS | Clinical Summary ---
Author Organization [facility] Address [address] [place] [address] Care Team Providers Care Film Coater Name Role Phone Unavailable Primary Care Provider Unavailabl e Source Comments [facility],non-owned Affiliates and Associated Physician Practices is amultiple site organization consisting of ambulatory clinics and hospital sitesin [place], [place], [place] and [place]. This disclosure is being madepursuant to the Care Everywhere program and may not contain all information available regarding this patient. Last updated 18.[facility] Encounters Date Type Department Care Team Description 03/16/2025 Lab Requisition [facility] - Pathology Lab [address] [place] [phone] Moises Villatoro MD Illness, unspecified 03/15/2025 Lab Requisition [facility] - Pathology Lab [address] [place] [phone] Moises Villatoro MD Localized enlarged lymph nodes from Last 3 Months Social History Tobacco Use Types Packs/Day Years Used Date Smoking Tobacco: Never Assessed Comments Unknown Sex and Gender Information Value Date Recorded Sex Assigned at Not on file 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 [place] and lambda immunohistochemistry stains highlight a polyclonal [...] favors a benign process. 03/21/2025 10:26 AM [facility] Clinical History Lymphadenopathy 03/21/2025 10:26 AM [facility] AP Comment Flow cytometry of th e lymph node identified a lambda predominant population (kappa:lambda ratio 0.7) of B-cells with CD23 expression ([id number]). In conjunction with the morphologic features, this [...] be reported upon completion. 03/21/2025 10:26 AM [facility] Materials Received Received are 11 slide(s) labeled and 11 block(s) [id number] along with a copy of the outside pathology report. [place] [address] . All original materials are returned to the referring institution, along with a copy of our final report. 03/21/2025 10:26 AM [facility] Pathologist Location at [facility] 03/21/2025 10:26 AM [facility] Disclaimer The performance characteristics of all immunohistochemical and indirect immunofluorescence stains (if any) cited in this report were determined by the Histopathology Laboratory of [facility]. Some of these tests were developed by [...] the attending (teaching) pathologist. 03/21/2025 10:26 AM [facility] Embedded Images 03/21/2025 10:26 AM [facility] Pathology/Cytolo gy BIOPSY OF LYMPH NODE / Unknown 03/15/2025 9:40 AM CDT 03/16/2025 2:42 PM CDT us Moises Villatoro MD LAB - PATHOLOGY/CYTOLOGY ORDERAB LES Final Result [facility] [address] [place] [address], [facility] [phone] * FLOW CYTOMETRY TISSUE PANEL (03/15/2025 9:40 AM CDT) Case Report Flow Cytometry Case: [id number] Authorizing Provider: Moises Villatoro MD Collected: 03/15/2025 09:40 AM Ordering Location: [facility] - Received: 03/15/2025 12:56 PM Pathology Lab Pathologist: Dilan Pandya MD Specimen: Lymph Node 03/15/2025 3:03 PM CDT [facility] Final Diagnosis Lymph node, flow cytometry: - Lambda light chain predominant B-cell population, suspicious for a clonal B-cell population (~60% of overall events) 03/15/2025 3:03 PM CDT [facility] at 1503 CDT [...] cytometry specimen has been reviewed for senior manager quality assurance purposes. 03/15/2025 3:03 PM CDT [facility] Flow Cytometry Results Differential Result Comment Flow Cell Count /uL 64,800 Total Viability % 58.0 Lymphocytes % 95 Dim CD45 Region % 2 Monocytes % 0 Granulocytes % 3 03/15/2025 3:03 PM CDT [facility] PATH[facility] Reason for test Localized enlarged lymph nodes 785.6 03/15/2025 3:03 PM CDT [facility] PATH[facility] Client Specimen ID # [id number] 03/15/2025 3:03 PM CDT [facility] Number of markers 17 were performed. A-2 Flow CD10 A-4 Flow CD20 A-5 Flow CD23 A-10 Flow CD2 A-11 Flow CD3 A-12 Flow CD4 A-16 Flow CD1a A-3 Flow CD19 A-6 Flow CD34 A-7 Flow CD45 A-13 Flow CD5 A-14 Flow CD7 A-15 Flow CD8 A-17 Flow CD30 A-8 [place]+CD19+ A-9 Lambda+CD19+ 03/15/2025 3:03 PM CDT [facility] Pathologist Location at [facility] 03/15/2025 3:03 PM CDT [facility] Disclaimer Test performed at [facility], [address] [place], [place], [address]. *The established laboratory minimum viability is 70%. [...] complexity clinical testing. 03/15/2025 3:03 PM CDT [facility] Embedded Images 3:03 PM CDT [facility] Pathology/Cytolo gy ENTIRE LYMPH NODE / Unknown 03/15/2025 9:40 AM CDT 03/15/2025 12:56 PM CDT Moises Villatoro MD LAB - PATHOLOGY/CYTOLOGY ORDERAB LES Final Result [facility] [address] [facility] [place] [address], [facility] [phone] from Last 3 Months Insurance [facility] MANAGED MEDICARE ADV [facility] MANAGED MEDICARE ADV [place] [id number]
--- OUTSIDE RECORDS SUMMARY | 2025-04-03 10:44 | XMS_ITS | Clinical Summary ---
Author Organization [facility] Address [address] [place] [address] Care Team Providers Care Mortgage Loan Funder Name Role Phone Jesse Duran MD Primary [...] Type Department Care Team Description 03/02/2025 Telephone [facility] 1 [place] [address] Jennifer Claire, JENAE 02/27/2025 12:24 PM CDT - 02/27/2025 11:59 PM CDT Hospital Encounter [facility] 1 [place] [address] 2, Amh Rad Rn Rad, Amh Breast Localized enlarged lymph nodes Discharge Disposition: Discharge to home or self care 02/23/2025 Telephone [facility] [address] [place] [address] Jennifer Claire, JENAE 02/22/2025 2:50 PM CDT Ancillary Procedure [facility] Outside Films Abnormal mammogram 02/22/2025 Telephone [facility] [address] [place] [address] Jennifer Claire RN 02/14/2025 10:45 AM CDT [...] on file 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 Gender Identity Not on file Sexual Orientation [...] history exists Medical Devices Implanted Type Area Waistline Joiner Lockstitch Device Identifier Shelf Expiration Date Model / Serial / Lot Bard Peripheral Vascular Ultraclip Bard 17ga 10cm 2 Trigger Permanent Ultrasound [id number] - [id number] - [id number] Implanted:Qty: 1 on 02/27/2025 by Donell Walker MD at [facility] Breast Left: Breast Bard Peripheral Vascular [id number] 03/11/2027 [id number] / [id number] / Description:US left axillary lymph node biopsy; [...] biopsy) 02/27/2025 1:36 PM CDT Narrative PATHOLOGY [facility] - 03/01/2025 3:16 PM CDT EPIC results best viewed via link to PDF [facility] Department of Pathology [address] [place] [address] Note to Patients: This report may contain [...] Final Report Patient Name: GENNA VASQUEZ Address: [address] [place] [address] Gender: F : 1955 (Age: 69) Service: Location: [facility] : [id number] Hospital #: [id number] Patient Type: [facility] EP ANCILLARY Taken: 02/27/2025 Received: 02/27/2025 Accessioned: [...] determined by the Surgical Pathology Department at [facility] as part of an ongoing data quality consultant program and in compliance with federally mandated [...] characteristics determined by the Surgical Pathology Department [facility]. It has not been cleared or approved by the U. S. Food and Drug Administration. Note for decalcified specimens: This assay has not been validated on decalcified tissues. Results should be interpreted with caution given the possibility of false negativity on decalcified specimens us Jesse Duran MD LAB PATHOLOGY ORDERABL ES Final Result [facility]OLOGY [facility] ([place]) [address] [place], [place] [id number] * US Guided Biopsy Lymph Node Superficial [...] formalin for histologic analysis. Jesse Duran MD [facility] MAMMO PROCEDURES E dited Result - [...] chest CT from January. Jesse Duran MD [facility] MAMMO PROCEDURES F inal Result * US Outside Reference (02/14/2025 10:45 AM CDT) Narrative [facility] - 02/21/2025 11:22 AM CDT This order has been auto-finalized and does not contain a result. us Not In File Miscellaneous IMG US PROCEDURES Darline l Result Performing Organization Address City/[facility] Co de Phone Number [facility] * Breast Imaging Diagnostic Outside Reference (02/14/2025 10:25 AM CDT) Narrative [facility] - 02/21/2025 11:24 AM CDT This order has been auto-finalized and does not contain a result. us Not In File Miscellaneous IMG MAMMO PROCEDURES F inal Result Performing Organization Address [facility] Co de Phone Number [facility] * CT Body Outside Reference (01/16/2025 8:10 AM CDT) Narrative [facility] - 02/21/2025 11:27 AM CDT This order has been auto-finalized and does not contain a result. us Not In File Miscellaneous IMG CT PROCEDURES Darline l Result Performing Organization Address [facility] Co de Phone Number [facility] from Last 3 Months Insurance [facility] MEDICARE ADVANTAGE [facility] Address: [facility] [address] [place] [address] Care Teams Mortgage Loan Funder Relationship Specialty Start Date End Date Jesse Duran MD [address] [place] [address] DR HERNANDEZ [address] [place] [address] PCP - General Family Practice 02/20/25
--- OUTSIDE RECORDS SUMMARY | 2025-04-03 10:44 | XMS_ITS | Encounter Summary ---
Author Organization [facility] Address [address] [place] [address] Care Team Providers Care Proj Engineer Name Role Phone Unavailable Primary Care Provider Unavailabl e Encounter Details Date Type Department Care Team (Late st Contact Info) Description 03/16/2025 Lab Requisition [facility] - Pathology Lab [address] [place] [address] Moises Villatoro MD [address] [address] Illness, unspecified Social History Tobacco Use Types Packs/Day Years Used Date Smoking Tobacco: Never Assessed Comments Unknown Sex and Gender Information Value Date Recorded Sex Assigned at Not on file 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 Gender Identity Not on file Sexual Orientation Not on file documented as of this encounter Plan of Treatment Not on file documented as of this encounter Procedures Procedure Name Priority Date/Time Associated Diagnosis Comments PATHOLOGY TISSUE Routine 03/15/2025 9:40 AM CDT Illness, unspecified documented in this encounter Results * PATHOLOGY TISSUE (03/15/2025 9:40 AM CDT) Case Report Surgical Pathology Report Case: [id number] Authorizing Provider: Moises Villatoro MD Collected: 03/15/2025 09:40 AM Ordering Location: [facility] - Received: 03/16/2025 02:42 PM Pathology Lab Pathologist: Krysten Stevenson MD Specimen: Lymph Node Biopsy 03/21/2025 10:26 AM CDT [facility] Final Diagnosis Lymph node, left axillary, excision: - 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 [place] and lambda immunohistochemistry stains highlight a polyclonal [...] favors a benign process. 03/21/2025 10:26 AM [facility] Clinical History Lymphadenopathy 03/21/2025 10:26 AM [facility] AP Comment Flow cytometry of th e lymph node identified a lambda predominant population (kappa:lambda ratio 0.7) of B-cells with CD23 expression ([id number]). In conjunction with the morphologic features, this [...] be reported upon completion. 03/21/2025 10:26 AM [facility] Materials Received Received are 11 slide(s) labeled and 11 block(s) [id number] along with a copy of the outside pathology report. [place] [address] . All original materials are returned to the referring institution, along with a copy of our final report. 03/21/2025 10:26 AM [facility] Pathologist Location at [facility] 03/21/2025 10:26 AM [facility] Disclaimer The performance characteristics of all immunohistochemical and indirect immunofluorescence stains (if any) cited in this report were determined by the Histopathology Laboratory of [facility]. Some of these tests were developed by [...] the attending (teaching) pathologist. 03/21/2025 10:26 AM [facility] Embedded Images 03/21/2025 10:26 AM [facility] Pathology/Cytolo gy BIOPSY OF LYMPH NODE / Unknown 03/15/2025 9:40 AM CDT 03/16/2025 2:42 PM CDT us Moises Villatoro MD LAB - PATHOLOGY/CYTOLOGY ORDERAB LES Final Result [facility] [address] [place] [address], [facility] [phone] documented in this encounter Visit Diagnoses Diagnosis Illness, unspecified documented in this encounter
--- OUTSIDE RECORDS SUMMARY | 2025-04-03 10:44 | XMS_ITS | Data Portability ---
Author Organization [place] [facility], Main Office Address [address] [place] [address] Care Team Providers Care Analytical Chemist Name Role Phone TRANG GRIFFIN Primary Care Provider TRANG GRIFFIN Referring Provider [phone] Assessment Encounter Date Assessment Date Assessment LastModified by Organization Details LastModified Time 10/30/2022 10/30/2022 Impression: Patient has advanced patellofemoral arthritis right knee moderately severe patellofemoral osteoarthritis left knee. I have discussed treatment options with her in detail. The surgical treatment option would be total knee replacement. I have discussed with her that the bone loss in the lateral facet of her right patella would likely preclude the ability to resurfaced that patella but most patients achieve excellent relief of symptoms with total knee replacement even leaving the patella on resurfaced. The non surgical strategies would include nonsteroidal anti-inflammatory medication activity modification physical therapy for hip abduction external rotation core strengthening and hamstring quadriceps stretching, and cortisone shots to trying control her symptoms. The she would like to try cortisone shots in both knees. I discussed risk of side effects with cortisone shots with her including risk of infection. After ChloraPrep prep, 20 mg of Kenalog and 4 cc of 0.5% ropivacaine were injected into each knee without difficulty and she tolerated this well. She has no history of kidney disease liver disease or peptic ulcer disease. She would like to try low strength anti-inflammatory medication initially we will try Aleve 1 tablet twice daily. I have given her instruction sheet describing possible side effects of anti-inflammatory medication use and advised her that if she is going to stay on this long-term she should have blood work after 3 months and then after every 6 months thereafter. She would like us to schedule the physical therapy for her. I have recommended that she be careful to avoid doing quadriceps strengthening exercises specifically which would tend to exacerbate her anterior knee pain. I have discussed with her that if she gets excellent relief from the cortisone shot she can have these as often as every 3 months. She would like to follow-up in 3 months. 30 minutes were spent in total care this patient more than half the time spent in manu-ya-grrj care. Not available 11/11/2022 12:28:20 01/29/2023 01/29/2023 patient returns. She was seen 3 months ago found to have significant patellofemoral arthritis in both knees. The it was advanced on the right moderately so severe on the left and she had cortisone shots that time that worked extremely well. She has been wearing better walking shoes and feels this has been helpful. She has been taking Aleve as needed that has been helpful. She even had to run after grandchild and tolerated that. This past week she has noticed that her symptoms are starting to return she would like cortisone shots again both knees. On exam today she has patellofemoral crepitus with range of motion. Trace effusion bilaterally. Patient would like cortisone shots today in both knees. Risk of side effects including risk of infection discussed. After ChloraPrep prep, 20 mg of Kenalog 4 cc of 0.5% ropivacaine were injected into each knee without difficulty. She expects that at some point in the future she will want to proceed with knee replacement surgery but as long as her symptoms are well controlled observation is appropriate. She will call us if she needs cortisone shots the future. Not available 01/29/2023 10:49:06 08/23/2023 08/23/2023 patient returns. She had cortisone shots in both knees 5 months ago and the shots gave her great relief until about 1 month ago. She has been taking 1 Aleve twice daily which has been helpful and her neck pain has completely resolved. She is getting a CMP and CBC through her medical doctor tomorrow. I have discussed her that even Aleve can cause kidney problems so this will be checked. Her previous x-rays demonstrate severe patellofemoral arthritis the right moderately severe patellofemoral arthritis left. She would like cortisone shots again in both knees today. Risk of side effects including risk of infection were discussed. After Betadine and alcohol prep, 20 mg Kenalog 4 cc of 0.5% ropivacaine were injected each knee without difficulty. She will follow-up on an as-needed basis. She understands she can have a cortisone shot his office every 3 months if necessary and helpful. Not available 08/23/2023 18:06:41 Plan of Treatment Reminders Order Date Submit Date Provider Last Modified By Organization Details Last Modified Time Details Appointments None recorded. Lab None recorded. Referral None recorded. Procedures injection/a spiration joint/bursa (PROC) - in office procedure, administere d by provider 2023 024 [email or web address] In-Office Order, Internal Use Only DO Not Attach Compendium DO Not Attach Compendium, Do Not Delete/merge, [id number] 15:38:34 injection/a spiration joint/bursa (PROC) - in office procedure, administere d by provider 2022 023 [email or web address] In-Office Order, Internal Use Only DO Not Attach Compendium DO Not Attach Compendium, Do Not Delete/merge, [id number] 3 10:35:30 injection/a spiration joint/bursa (PROC) - in office procedure, administere d by provider 2022 023 [email or web address] In-Office Order, Internal Use Only DO Not Attach Compendium DO Not Attach Compendium, Do Not Delete/merge, [id number] 3 12:52:37 Surgeries None recorded. Imaging XR, knee 2022 023 [email or web address] [facility] [place], [facility] [facility] [address], [place], [address], 3 12:51:16 Medication Orders Kenalog 10 mg/mL suspension for injection 2023 024 [facility]14212, [address], [place], [id number], 4 18:27:48 ropivacaine (PF) 5 mg/mL (0.5 %) injection solution [address] [facility]29482, [address] [place] [address], [id number], 4 18:27:48 Kenalog 10 mg/mL suspension for injection [address] [facility] #44478, [address] [place] [address], [id number], 3 15:44:15 ropivacaine (PF) 5 mg/mL (0.5 %) injection solution 2022 023 [facility], [address] [place] [address], [id number], 3 15:44:15 Kenalog 10 mg/mL suspension for injection [address] [facility]61453, [address] [place] [address], [id number], 3 15:48:48 ropivacaine (PF) 5 mg/mL (0.5 %) injection solution [address] [facility]50774, [address] [place] [address], [id number], 3 15:48:48 Patient TargetsNo targets recorded. Patient InstructionsNo instructions recorded. Reason for Referral None Reported. Results Created Date Observation Date Name Description Value Unit Range Abnormal Flag Note LastModifiedBy Organization Detail LastModifiedTime 02/13/20 21 02/18/2021 XR, hand No observ ation record ed. [id number] [facility] [place] [address], [place], [address], 08/12/2022 13:16:16 02/13/20 21 08/08/2019 elect romyo gram + nerve condu ction study No observ ation record ed. [id number] Not Available 08/12/2022 13:16:16 10/31/19 23 XR, knee No observ ation record ed. [facility] [place] [address], [place], [address], 11/11/2022 12:22:57 Result Notes None recorded. Problems Name Problem SNOMED Code Status Onset Date Resolution Date Notes Provider Name and Address Organization Details Recorded Time Osteoarthr itis 542671567 Active Not Available [facility] 3 13:13:58 Pain of left knee joint 2664505072370 07 Active 2022 Diana Gomez RMA null, [facility] 3 11:46:01 Pain of bilateral knee joints 5384340411169 04 Active 2022 Diana Gomez RMA null, [place] [facility] 3 11:46:42 Bilateral osteoarthr itis of knees 3194934300121 07 Active 2022 Diana Gomez RMA null, [place] [facility] 3 10:34:37 Problem Notes None recorded. Procedures Surgical History Date Name Laterality Status Provider Name and Address Organization Details Recorded Time hysterectomy completed Not Available [facility] 08/12/2022 13:13:08 Tonsillectomy completed Not Available [facility] 08/12/2022 13:13:08 section completed OSKAR Cordero [place] [facility] 10/30/2022 11:45:04 Imaging Results None recorded. Procedure Notes None recorded. Medical Equipment None Reported. Medications Name Sig Start Date Stop Date Status Note LastModified by Organization Details LastModified Time amoxicillin 500 mg capsule TK 1 C PO TID TAT 07/22 completed Not Available Not Available Not Available oxybutynin chloride ER 15 mg tablet,exte nded release 24 hr TK 1 T PO QD active Not Available Not Available No t Available cetirizine 10 mg tablet TK 1 T PO D 02/12 completed Not Available Not Available Not Available oxybutynin chloride ER 10 mg tablet,exte nded release 24 hr TK 1 T PO QD 07/22 completed Not Available Not Available Not Available benzonatate 200 mg capsule TAKE 1 CAPSULE BY MOUTH THREE TIMES DAILY NEEDED FOR COUGH 01/29 completed Not Available Not Available Not Available clobetasol 0.05 % topical cream APPLY TOPICALLY TO THE AFFECTED AREA TWICE DAILY 01/29 completed Not Available Not Available Not Available triamcinolo ne acetonide 0.5 % topical ointment SCOTT THIN LAYER EXT AA BID 07/22 completed Not Available Not Available Not Available metronidazo le 500 mg tablet 07/22 completed Not Available Not Available Not Available ciprofloxac in 500 mg tablet 07/22 completed Not Available Not Available Not Available simvastatin 40 mg tablet Take 1 tablet every day by oral route. active Not Available Not Available No t Available Kenalog 10 mg/mL suspension for injection in office 2023 active [facility]: [phone] Not Available Not Available Not Available hydroxyzine HCl 25 mg tablet TAKE 1 TABLET BY MOUTH THREE TIMES DAILY NEEDED FOR ANXIETY 01/29 completed Not Available Not Available Not Available zolpidem 10 mg tablet TAKE 1 TABLET BY MOUTH EVERY DAY AT BEDTIME active Not Available Not Available No t Available albuterol sulfate HFA 90 mcg/actuati on aerosol inhaler INHALE 1 PUFF BY MOUTH EVERY 4 HOURS NEEDED FOR COUGH 01/29 completed Not Available Not Available Not Available doxycycline hyclate 20 mg tablet TAKE 1 TABLET BY MOUTH TWICE DAILY active Not Available Not Available No t Available duloxetine 60 mg capsule,del ayed release Take 1 capsule every day by oral route. active Not Available Not Available No t Available chlorhexidi ne gluconate 0.12 % mouthwash 07/22 completed Not Available Not Available Not Available calcium 2020 active Not Available Not Available Not Avai lable Vitamin D 08/22 completed Not Available Not Available Not Available Ambien 2020 active Not Available Not Available Not Avai lable Centrum Silver 01/29 completed Not Available Not Available Not Available oxybutynin 01/29 completed Not Available Not Available Not Available cholecalcif kennedy (vitamin D3) 1,250 mcg (50,000 unit) capsule TAKE 1 CAPSULE BY MOUTH WEEKLY 01/29 completed Not Available Not Available Not Available ropivacaine (PF) 5 mg/mL (0.5 %) injection solution in office 2023 active [facility] [phone] Not Available Not Available Not Available Dialyvite Vitamin D3 Max 1,250 mcg (50,000 unit) tablet TAKE 1 TABLET BY MOUTH WEEKLY 01/29 completed Not Available Not Available Not Available Vitals Date Recorded Body height Provider Name an d Address Organization Details Last Updated DateTime 08/23/2023 154.94 cm Diana Jason [facility] [employer] [facility] 08/23/2023 15:36:54 Date Recorded Body height Body mass index (BMI) Body weight Provider Name and Address Organization Details Last Updated DateTime 10/30/2022 154.94 cm 28.3 kg/m2 87175.86 g Diana Gomez [facility] [employer] [facility] 10/30/2022 11:54:22 Date Recorded Body height Provider Name an d Address Organization Details Last Updated DateTime 01/29/2023 154.94 cm Diana Gomez [facility] [employer] [facility] 01/29/2023 10:33:35 Date Recorded Body mass index (BMI) Body height Body weight Provider Name and Address Organization Details Last Updated DateTime 02/12/2021 27.8 kg/m2 154.94 cm 63750.08 g Not Available [facility] 08/12/2022 13:13:29 Social History None recorded. Functional Status Question Answer Note LastModified by Organizat ion Details LastModified Time What is your level of alcohol consumption? None [id number] Information not available 08/12/2022 Mental Status None recorded. Family History Relationship Description Onset Age of this Age Resolved Age Notes LastModified by Organization Details LastModified Time Mother Heart disease [id number] Not available 08/12/2022 13:13:09 Mother Family history of stroke [id number] Not available 08/12/2022 13:13:09 Father Heart disease [id number] Not available 08/12/2022 13:13:09 Mother Hypertensive disorder [email or web address] Not available 2022 11:44:52 Medical History Condition Response ARTHRITIS Y ULCERS Y SKIN PROBLEMS Y OSTEOPOROSIS Y URINARY/BLADDER/KIDNEY PROBLEMS Y USE OF NSAIDS Y Gynecological HistoryNo gynecological history recorded. Obstetrics History GPAL:G 0 P 0 0 0 0 Past Encounters Encounter ID Performer Location Encounter Start Date Encounter Closed Date Diagnosis/Indication Diagnosis SNOMED-CT Code Diagnosis ICD10 Code Diagnosis IMO Codes Diagnosis Note [id number] Leif Yee MD [facility] [place] [address] [place] [address] 02/12/2021 00:00:00 03/09/2021 12:21:52 [id number] Leif Yee MD [facility] [place] [address] [place] [address] 10/30/2022 11:27:54 11/11/2022 12:51:16 Pain of bilateral knee joints 2235741337 80129 M25.561 M25.562 [id number] Leif Yee MD [facility] [place] [address] [place] [address] 01/29/2023 10:25:02 01/29/2023 10:52:10 Bilateral osteoarthritis of knees 1626257689 77008 M17.0 [id number] Leif Yee MD [facility] [place] [address] [place] [address] 08/23/2023 15:24:47 08/23/2023 18:19:41 Bilateral osteoarthritis of knees 5255018366 57984 M17.0 Health Concerns Section Related Observation LastModified by Organization Detai ls LastModified Time None Recorded Concern Status LastModified by Organization Details LastModified Time None Recorded Advance Directives Directive None Recorded Payers Insurance Date Sequence Insurance Name Policy Number Policy Wong Covered Member ID Wong Member ID Guarantor Name 08/22/2023 1 [facility] (MEDICARE REPLACEMENT/A DVANTAGE - PPO) [id number] Genna Vasquez [id number] Genna Vasquez Notes Date Note Type Note Provider Name and Address Organization Details Recorded Time 10/30/2022 text/html patient is a 67-year-old female who presents this time for evaluation of her knees. She has had symptoms in both knees left worse than right for about 3 years. No injury. She complains of a sense of instability and that is her chief complaint but also pain around the kneecap and stiffness feeling. When she is climbing stairs or getting up from a chair she has her most pronounced symptoms. Her knees crackle. Kneeling is very difficult for her. She has used ibuprofen 600 mg a couple of times. She has tried knee sleeve type braces. She does not feel she limps. She has not had a prior cortisone shot. She does take ibuprofen either 400 or 600 mg at a time every other day usually though for her neck her shoulder symptoms. She fell last summer on her knees and felt that her symptoms have worsened a bit since then. Leif Yee MD [address] [place] [address], [place] [address], [place], [address], [place] [facility] 11/11/2022 12:29:44 OBGyn Episode No OBEpisode recorded.
--- OUTSIDE RECORDS SUMMARY | 2025-04-03 10:44 | XMS_ITS | Encounter Summary ---
Author Organization [facility] Address [address] [place] [address] Care Team Providers Care Consulting Database Administrator Name Role Phone Unavailable Primary Care Provider Unavailabl e Encounter Details Date Type Department Care Team (Late st Contact Info) Description 03/15/2025 Lab Requisition [facility] - Pathology Lab [address] [place] [address] Moises Villatoro MD [address] [address] Localized enlarged lymph nodes Social History Tobacco Use Types Packs/Day Years Used Date Smoking Tobacco: Never Assessed Comments Unknown Sex and Gender Information Value Date Recorded Sex Assigned at Not on file 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 PATHOLOGY LAB at 1503 CDT Flow [...] flow cytometry specimen has been reviewed for quality control supervisor purposes. 03/15/2025 3:[address] [facility] Flow Cytometry Results Differential Result Comment Flow Cell Count /uL 64,800 Total Viability % 58.0 Lymphocytes % 95 Dim CD45 Region % 2 Monocytes % 0 Granulocytes % 3 03/15/2025 3:[address] [facility] PATH[facility] Reason for test Localized enlarged lymph nodes 785.6 03/15/2025 3:[address] [facility] Client Specimen ID # [id number] 03/15/2025 3:[address] [facility] Number of markers 17 were performed. A-2 Flow CD10 A-4 Flow CD20 A-5 Flow CD23 A-10 Flow CD2 A-11 Flow CD3 A-12 Flow CD4 A-16 Flow CD1a A-3 Flow CD19 A-6 Flow CD34 A-7 Flow CD45 A-13 Flow CD5 A-14 Flow CD7 A-15 Flow CD8 A-17 Flow CD30 A-8 [place]+CD19+ A-9 Lambda+CD19+ 03/15/2025 3:[address] [facility] Pathologist Location at [facility] 03/15/2025 3:[address] [facility] PATH[facility] LAB Disclaimer Test performed at [facility], [address] [place] [address], [id number]. *The established laboratory minimum viability is 70%. [...] complexity clinical testing. 03/15/2025 3:03 PM CDT [facility] Embedded Images 3:03 PM CDT [facility] Pathology/Cytolo gy ENTIRE LYMPH NODE / Unknown 03/15/2025 9:40 AM CDT 03/15/2025 12:56 PM CDT us Moises Villatoro MD LAB - PATHOLOGY/CYTOLOGY ORDERAB LES Final Result [facility] [address] [phone] documented in this encounter Visit Diagnoses Diagnosis Localized enlarged lymph nodes Enlargement of lymph nodes documented in this encounter
== END 2025-04-03 09:25 | disposition home or self-care (01) ==
LOC: ANHFOHIMG 09:25
PROVIDERS: PCP Family Medicine; Visit Provider Surgery
DX: L76.34 Postprocedural seroma of skin and subcutaneous tissue following other procedure (principal); R59.0 Localized enlarged lymph nodes
CPT/HCPCS: 19000; 76942

== ENCOUNTER 2025-04-12 12:59 | Outpatient (CLI) | payer MEDICARE, SELFPAY ==
--- NOTE | ~2025-04-12 | DEXA_ITS ---
Bone Density Report Name: KENJI HINOJOSA Age: 69 Sex: Female Ethnicity: White Date of : 1955 Indication: postmenopausal; screening for osteoporosis; height loss; hysterectomy; Referring Provider: CESAR GRIFFIN Study: Bone densitometry was performed. Exam Date: April 12, 2025 Accession number: [id number] Bone Density: Region BMD T-score Z-score Classification AP Spine(L1-L4) 0.994 -0.5 1.6 Normal Femoral Neck (Left) 0.584 -2.4 -0.6 Osteopenia Total Hip (Left) 0.772 -1.4 0.1 Osteopenia Femoral Neck (Right) 0.656 -1.7 0.0 Osteopenia Total Hip (Right) 0.800 -1.2 0.3 Osteopenia Total Hip Mean 0.786 -1.3 0.2 Osteopenia World Health Organization criteria for BMD impression classify patients as: Normal (T-score at or above -1.0), Osteopenia (T-score between -1.0 and -2.5), or Osteoporosis (T-score at or below -2.5). 10-year Fracture Risk(1): Major Osteoporotic Fracture 13% Hip Fracture 3.0% Reported Risk Factors: [place] (), Neck BMD=0.584, BMI=29.2 (1) FRAX(R) Version 3.08. Fracture probability calculated for an untreated patient. Fracture probability may be lower if the patient has received treatment. Clinical Information Provided by Patient: Has used the following medications: Vitamin D, Calcium Has the following medical conditions: Hysterectomy Patient maximum height was 62 Menopause Age: 38 Drinks caffeinated beverages Onset of menses at age 15 Number of children 3 Impression: The patient has low bone mass, based on the Left Femoral Neck T-score. The patient has an estimated ten-year risk of hip fracture of 3% and an estimated ten-year risk of major fracture of 13%, based on the WHO FRAX algorithm. Discussion: BONE DENSITY IS LOW AT ONE OR MORE SKELETAL SITES. THE PATIENT'S BMD AND CLINICAL RISK FACTORS CONTRIBUTE TO THIS PATIENT'S INCREASED RISK OF FRACTURE. This patient's lowest T-score is low at one or more skeletal sites. It meets the World Health Organization's (WHO) criteria for ?low bone mass? (T-score between -1.0 and -2.5). The patient's 10-year risk of hip fracture as calculated by FRAX exceeds the threshold where pharmacological therapy is recommended by the National Osteoporosis Foundation (NOF). However, all treatment decisions require clinical judgment and consideration of individual patient factors, including patient preferences, comorbidities, previous drug use, risk factors not captured in the FRAX model (e.g., frailty, falls, vitamin D deficiency, increased bone turnover, interval significant decline in bone density) and possible under or overestimation of fracture risk by FRAX. The patient should follow a healthful lifestyle (good nutrition with adequate calcium and vitamin D, and appropriate weight-bearing exercise). Follow-Up: Consider a repeat BMD and Vertebral Fracture Assessment (VFA) exam in 2 years or sooner if medically necessary, to reassess this patient's status. Reported by: CHICO on 04/12/2025 1:43:00 PM. Reviewed, dictated and finalized at location A.
--- OUTSIDE RECORDS SUMMARY | 2025-04-12 13:47 | XMS_ITS | Encounter Summary ---
Author Organization [facility] Address [address] [place] [address] Care Team Providers Care Route Salesperson Name Role Phone Unavailable Primary Care Provider Unavailabl e Encounter Details Date Type Department Care Team (Late st Contact Info) Description 03/16/2025 Lab Requisition [facility] - Pathology Lab [address] [place] [address] Moises Villatoro MD [address] [address] Illness, unspecified Social History Tobacco Use Types Packs/Day Years Used Date Smoking Tobacco: Never Assessed Comments Unknown Sex and Gender Information Value Date Recorded Sex Assigned at Not on file 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
--- OUTSIDE RECORDS SUMMARY | 2025-04-12 13:47 | XMS_ITS | Clinical Summary ---
Author Organization [facility] Address [address] [place] [address] Care Team Providers Care Octave Board Assembler Name Role Phone Unavailable Primary Care Provider Unavailabl e Source Comments [facility],non-owned Affiliates and Associated Physician Practices is amultiple site organization consisting of ambulatory clinics and hospital sitesin [place], [place], [place] and [place]. This disclosure is being madepursuant to the Care Everywhere program and may not contain all information available regarding this patient. Last updated 18.[facility] Encounters Date Type Department Care Team Description 03/16/2025 Lab Requisition [facility] - Pathology Lab [address] [place] [phone] Moises Villatoro MD Illness, unspecified 03/15/2025 Lab Requisition [facility] - Pathology Lab [address] [place] [phone] Moises Villatoro MD Localized enlarged lymph nodes from Last 3 Months Social History Tobacco Use Types Packs/Day Years Used Date Smoking Tobacco: Never Assessed Comments Unknown Sex and Gender Information Value Date Recorded Sex Assigned at Not on file 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 Gender Identity Not on file Sexual [...] nodes from Last 3 Months Results * FLOW CYTOMETRY TISSUE PANEL (03/15/2025 9:40 AM CDT) Case Report Flow Cytometry Case: [id number] Authorizing Provider: Moises Villatoro MD Collected: 03/15/2025 09:40 AM Ordering Location: [facility] - Received: 03/15/2025 12:56 PM Pathology Lab Pathologist: Dilan Pandya MD Specimen: Lymph Node 03/15/2025 3:03 PM CDT [facility] PATHOLOGY LAB Final Diagnosis Lymph node, flow cytometry: - Lambda light chain predominant B-cell population, suspicious for a clonal B-cell population (~60% of overall events) 03/15/2025 3:03 PM CDT [facility] PATHOLOGY LAB at 1503 CDT Flow Cytometry [...] cytometry specimen has been reviewed for quality assurance analyst purposes. 03/15/2025 3:03 PM [facility] PATH[facility] Flow Cytometry Results Differential Result Comment Flow Cell Count /uL 64,800 Total Viability % 58.0 Lymphocytes % 95 Dim CD45 Region % 2 Monocytes % 0 Granulocytes % 3 03/15/2025 3:03 PM [facility] Reason for test Localized enlarged lymph nodes 785.6 03/15/2025 3:03 PM [facility] Client Specimen ID # [id number] 03/15/2025 3:03 PM [facility] Number of markers 17 were performed. A-2 Flow CD10 A-4 Flow CD20 A-5 Flow CD23 A-10 Flow CD2 A-11 Flow CD3 A-12 Flow CD4 A-16 Flow CD1a A-3 Flow CD19 A-6 Flow CD34 A-7 Flow CD45 A-13 Flow CD5 A-14 Flow CD7 A-15 Flow CD8 A-17 Flow CD30 A-8 Pastoria+CD19+ A-9 Lambda+CD19+ 03/15/2025 3:03 PM [facility] Pathologist Location at [facility] 03/15/2025 3:03 PM [facility] PATH[facility] Disclaimer Test performed at [facility], [address] [place] [address], [address]. *The established laboratory minimum viability is 70%. [...] complexity clinical testing. 03/15/2025 3:03 PM CDT [facility] PATH[facility] Embedded Images 3:03 PM CDT [facility] Pathology/Cytolo gy ENTIRE LYMPH NODE / Unknown 03/15/2025 9:40 AM CDT 03/15/2025 12:56 PM CDT Moises Villatoro MD LAB - PATHOLOGY/CYTOLOGY ORDERAB LES Final Result [facility] PATH[facility] LAB [address] [place] [place] [address], [facility] [phone] from Last 3 Months Insurance
--- OUTSIDE RECORDS SUMMARY | 2025-04-12 13:47 | XMS_ITS | Clinical Summary ---
Author Organization [facility] Address [address] [place] [address] Care Team Providers Care Solar Sales Estimator Name Role Phone Jesse Duran MD Primary [...] Type Department Care Team Description 03/02/2025 Telephone [facility] 1 [place] [address] Jennifer Claire, JENAE 02/27/2025 12:24 PM CDT - 02/27/2025 11:59 PM CDT Hospital Encounter [facility] 1 [place] [address] 2, Amh Rad Rn Rad, Amh Breast Localized enlarged lymph nodes Discharge Disposition: Discharge to home or self care 02/23/2025 Telephone [facility] [address] [place] [address] Jennifer Claire, JENAE 02/22/2025 2:50 PM CDT Ancillary Procedure [facility] Outside Films Abnormal mammogram 02/22/2025 Telephone [facility] [address] [place] [address] Jennifer Claire RN 02/14/2025 10:45 AM CDT [...] on file 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 Gender Identity Not on file Sexual Orientation [...] history exists Medical Devices Implanted Type Area Political Cartoonist Device Identifier Shelf Expiration Date Model / Serial / Lot Bard Peripheral Vascular Ultraclip Bard 17ga 10cm 2 Trigger Permanent Ultrasound [id number] - [id number] - [id number] Implanted:Qty: 1 on 02/27/2025 by Donell Walker MD at [facility] Breast Left: Breast Bard Peripheral Vascular [id number] 03/11/2027 [id number] / [id number] / Description:US left axillary lymph node biopsy; [...] biopsy) 02/27/2025 1:36 PM CDT Narrative PATHOLOGY [facility] - 03/01/2025 3:16 PM CDT EPIC results best viewed via link to PDF [facility] Department of Pathology [address] [place] [address] Note to Patients: This report may contain [...] Report Patient Name: GENNA VASQUEZ Address: [address] [place] [address] Gender: F : 1955 (Age: 69) Service: Location: [facility] : [id number] Hospital #: [id number] Patient Type: [facility] EP ANCILLARY Taken: 02/27/2025 Received: 02/27/2025 Accessioned: [...] determined by the Surgical Pathology Department at [facility] as part of an ongoing quality control operator program and in compliance with federally mandated [...] characteristics determined by the Surgical Pathology Department [facility]. It has not been cleared or approved by the U. S. Food and Drug Administration. Note for decalcified specimens: This assay has not been validated on decalcified tissues. Results should be interpreted with caution given the possibility of false negativity on decalcified specimens us Jesse Duran MD LAB PATHOLOGY ORDERABL ES Final Result PATHOLOGY [facility] [address] [place], [place] [id number] * US Guided Biopsy Lymph Node Superficial [...] PROCEDURES Darline l Result Performing Organization Address City/[facility] Co de Phone Number [facility] * Breast Imaging Diagnostic Outside Reference (02/14/2025 10:25 AM CDT) Narrative [facility] - 02/21/2025 11:24 AM CDT This order has been auto-finalized and does not contain a result. us Not In File Miscellaneous IMG MAMMO PROCEDURES F inal Result Performing Organization Address [facility] Co de Phone Number [facility] * CT Body Outside Reference (01/16/2025 8:10 AM CDT) Narrative [facility] - 02/21/2025 11:27 AM CDT This order has been auto-finalized and does not contain a result. us Not In File Miscellaneous IMG CT PROCEDURES Darline l Result Performing Organization Address [facility] Co de Phone Number [facility] from Last 3 Months Insurance [facility] [place] [address] Care Teams Solar Sales Estimator Relationship Specialty Start Date End Date Jesse Duran MD [address] [place] [address] DR HERNANDEZ [address] [place] [id number] PCP - General Family Practice 02/20/25
--- OUTSIDE RECORDS SUMMARY | 2025-04-12 13:47 | XMS_ITS | Encounter Summary ---
Author Organization [facility] Address [address] [place] [address] Care Team Providers Care Business Developer Name Role Phone Unavailable Primary Care Provider Unavailabl e Encounter Details Date Type Department Care Team (Late st Contact Info) Description 03/15/2025 Lab Requisition [facility] - Pathology Lab [address] [place] [address] Moises Villatoro MD [address] [phone] Localized enlarged lymph nodes Social History Tobacco Use Types Packs/Day Years Used Date Smoking Tobacco: Never Assessed Comments Unknown Sex and Gender Information Value Date Recorded Sex Assigned at Not on file 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 - Received: 03/15/2025 12:56 PM Pathology Lab Pathologist: Dilan Pandya MD Specimen: Lymph Node 03/15/2025 3:03 PM CDT [facility] PATH[facility] Final Diagnosis Lymph node, flow cytometry: - Lambda light chain predominant B-cell population, suspicious for a clonal B-cell population (~60% of overall events) 03/15/2025 3:03 PM [facility] PATHOLOGY LAB at 1503 CDT Flow Cytometry [...] flow cytometry specimen has been reviewed for software quality assurance specialist purposes. 03/15/2025 3:03 PM [facility] PATH[facility] LAB Flow Cytometry Results Differential Result Comment Flow Cell Count /uL 64,800 Total Viability % 58.0 Lymphocytes % 95 Dim CD45 Region % 2 Monocytes % 0 Granulocytes % 3 03/15/2025 3:03 PM [facility] PATH[facility] LAB Reason for test Localized enlarged lymph nodes 785.6 03/15/2025 3:03 PM [facility] PATH[facility] Client Specimen ID # [id number] 03/15/2025 3:03 PM [facility] Number of markers 17 were performed. A-2 Flow CD10 A-4 Flow CD20 A-5 Flow CD23 A-10 Flow CD2 A-11 Flow CD3 A-12 Flow CD4 A-16 Flow CD1a A-3 Flow CD19 A-6 Flow CD34 A-7 Flow CD45 A-13 Flow CD5 A-14 Flow CD7 A-15 Flow CD8 A-17 Flow CD30 A-8 Naper+CD19+ A-9 Lambda+CD19+ 03/15/2025 3:03 PM [facility] PATH[facility] LAB Pathologist Location at [facility] 03/15/2025 3:03 PM [facility] PATH[facility] LAB Disclaimer Test performed at [facility], [address] [place] [address], [address]. *The established laboratory minimum viability is 70%. [...] complexity clinical testing. 03/15/2025 3:03 PM CDT [facility] PATHOLOG[facility] LAB Embedded Images 3:03 PM CDT [facility] PATH[facility] LAB Pathology/Cytolo gy ENTIRE LYMPH NODE / Unknown 03/15/2025 9:40 AM CDT 03/15/2025 12:56 PM CDT us Moises Villatoro MD LAB - PATHOLOGY/CYTOLOGY ORDERAB LES Final Result [facility] PATH[facility] [address] [phone] documented in this encounter Visit Diagnoses Diagnosis Localized enlarged lymph nodes Enlargement of lymph nodes documented in this encounter
== END 2025-04-12 13:00 | disposition home or self-care (01) ==
LOC: ANHFOHIMG 12:59
PROVIDERS: PCP Family Medicine; Visit Provider Family Medicine
DX: M85.89 Other specified disorders of bone density and structure, multiple sites (principal); Z78.0 Asymptomatic menopausal state; Z13.820 Encounter for screening for osteoporosis
CPT/HCPCS: 77080

== ENCOUNTER 2025-05-15 14:47 | Outpatient (CLI) | payer MEDICARE, SELFPAY ==
[2025-05-15 15:10] LABS: Hematocrit 38.6 % (37.0-47.0); Hemoglobin 13.1 g/dL (12.0-15.0); Immature Granulocyte Percent A 0.3 % (0-0.5); Lymphocytes Absolute Auto 2.70 K/mm3 (0.9-3.2); Mean Corpuscular HGB Conc 33.9 g/dl (32-36); Mean Corpuscular Hemoglobin 29.4 pg (26-34); Mean Corpuscular Volume 86.7 fl (80-100); Nucleated Red Blood Cells Absolute Auto 0.000 K/mm3 (0.0-0.012); Nucleated Red Blood Cells Perc 0.0 % (0.0-0.2); Platelet Count Result 223 k/mm3 (150-375); Red Blood Count 4.45 M/mm3 (4.2-5.4); White Blood Count 7.8 K/mm3 (4.5-10.0)
--- OUTSIDE RECORDS SUMMARY | 2025-05-15 16:12 | XMS_ITS | Clinical Summary ---
Author Organization [facility] Address [address] [place] [address] Care Team Providers Care Mothercraft Nurse Name Role Phone Jesse Duran MD Primary [...] Type Department Care Team Description 03/02/2025 Telephone [facility] [address] [place] [address] Jennifer Claire, JENAE 02/27/2025 12:24 PM CDT - 02/27/2025 11:59 PM CDT Hospital Encounter [facility] [address] [place] [address] 2, Amh Rad Rn Rad, Amh Breast Localized enlarged lymph nodes Discharge Disposition: Discharge to home or self care 02/23/2025 Telephone [facility] [address] [place] [address] Jennifer Claire, JENAE 02/22/2025 2:50 PM CDT Ancillary Procedure [facility] Outside Films Abnormal mammogram 02/22/2025 Telephone [facility] [address] [place] [address] Jennifer Claire RN 02/14/2025 10:45 AM CDT [...] on file 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 Gender Identity Not on file Sexual Orientation [...] 1955 Well Visit 65+ 2020 Covid-19 Vaccine (7 2024-2 6 season) 2025 05/05/2024, 04/21/2022, 01/29/2022, Additional history exists DTaP/Tdap/Td Vaccine (4 - Td or Tdap) 11/02/2032 11/02/2022, 07/14/2016, 01/06/2006, Additional history exists Hepatitis B Screening Completed 12/13/1992 , 04/19/1992, 03/19/1992 Zoster Vaccine Completed 02/27/2019, 12/23/2018 Pneumococcal vaccine 65+ Completed 04/01/2022, 01/12 Influenza Vaccine Completed 01/31/2025, , 03/31/2022, Additional history exists Medical Devices Implanted Type Area Test And Balance Engineer Device Identifier Shelf Expiration Date Model / Serial / Lot Bard Peripheral Vascular Ultraclip Bard 17ga 10cm 2 Trigger Permanent Ultrasound [id number] - [id number] - [id number] Implanted:Qty: 1 on 02/27/2025 by Donell Walker MD at [facility] Breast Left: Breast Bard Peripheral Vascular [id number] 03/11/2027 [id number] / [id number] / Description:US left axillary lymph node biopsy; [...] OUTSIDE REFERENCE Routine 02/14/2025 10:25 AM CDT from Last 3 Months Results * Surgical pathology (02/27/2025 2:04 PM CDT) Tissue (Lymph node, needle biopsy) 02/27/2025 1:36 PM CDT Narrative PATHOLOGY [facility] - 03/01/2025 3:16 PM CDT EPIC results best viewed via link to PDF [facility] Department of Pathology [address] [place] [address] Note to Patients: This report may contain [...] Final Report Patient Name: GENNA VASQUEZ Address: [address] [place] [address] Gender: F : 1955 (Age: 69) Service: Location: [facility] : [id number] Hospital #: [id number] Patient Type: [facility] ANCILLARY Taken: 02/27/2025 Received: 02/27/2025 Accessioned: 02/27/2025 Reported: 03/01/2025 Physician(s):Donell Walker MD Diagnosis: Lymph node, left axillary, biopsy -Cores and core fragments of lymph node -No evidence of malignancy -See description Brigdio Ortiz MD PhD Report Electronically Reviewed and [...] determined by the Surgical Pathology Department at [facility] as part of an ongoing air quality engineer program and in compliance with federally mandated [...] characteristics determined by the Surgical Pathology Department [facility]. It has not been cleared or approved by the U. S. Food and Drug Administration. Note for decalcified specimens: This assay has not been validated on decalcified tissues. Results should be interpreted with caution given the possibility of false negativity on decalcified specimens us Jesse Duran MD LAB PATHOLOGY ORDERABL ES Final Result [facility]OLOGY [facility] [address] [place] [address] * US Guided Biopsy Lymph Node Superficial [...] formalin for histologic analysis. Jesse Duran MD [facility] MAMMO PROCEDURES E dited Result - Final [...] chest CT from January. Jesse Duran MD [facility] MAMMO PROCEDURES F inal Result * US Outside Reference (02/14/2025 10:45 AM CDT) Narrative [facility] - 02/21/2025 11:22 AM CDT This order has been auto-finalized and does not contain a result. Not In File Miscellaneous [facility] US PROCEDURES Darline l Result [facility] * Breast Imaging Diagnostic Outside Reference (02/14/2025 10:25 AM CDT) Narrative [facility] - 02/21/2025 11:24 AM CDT This order has been auto-finalized and does not contain a result. us Not In File Miscellaneous IMG MAMMO PROCEDURES F inal Result [facility] from Last 3 Months Insurance [facility] MEDICARE ADVANTAGE Care Teams Mothercraft Nurse Relationship Specialty Start Date End Date Jesse Duran MD [address] [facility] [address] HERNANDEZ [address] [place] [id number] PCP - General Family Practice 02/20/25
--- OUTSIDE RECORDS SUMMARY | 2025-05-15 16:12 | XMS_ITS | Clinical Summary ---
Author Organization [facility] Address [address] [place] [id number] Care Team Providers Care Care Professional Name Role Phone Jesse Duran MD Primary [...] Dexa Scan (General) 2020 COVID-19 Vaccine ( season) 2025 04/21/2022, 01/29/2022, 03/11/2021, Additional history exists Influenza Adult (#1) 2025 02/12/2020 RSV Immunization or 60+ Years (1 - 1-dose 75+ series) 2030 DTaP, Tdap and Td Vaccines (4 - Td or Tdap) 11/02/2032 11/02/2022, 07/14/2016, 01/06/2006, Additional history exists Zoster Vaccines Completed 02/27/2019, 12/23/2018 Pneumococcal Vaccine: 50+ Years Completed 04/01/2022, 01/27/2021 Hepatitis A Vaccines Aged Out No long er eligible based on patient's age to complete this topic Meningococcal B Vaccine Aged Out No l onger eligible based on patient's age to complete this topic Meningococcal Vaccine Aged Out No chrissie martín eligible based on patient's age to complete this topic RSV Immunizations Under 20 Months Aged Out No longer eligible based on patient's age to complete this topic Insurance [facility] MEDICARE Care Teams Care Professional Relationship Specialty Start Date End Date Jesse Duran MD [address] [facility] [address] [place] [phone] PCP - General FAMILY PRACTICE 11/02/22
--- OUTSIDE RECORDS SUMMARY | 2025-05-15 16:12 | XMS_ITS | Encounter Summary ---
Author Organization [facility] Address [address] [place] [address] Care Team Providers Care Cumulative Effects Analyst Name Role Phone Unavailable Primary Care Provider Unavailabl e Encounter Details Date Type Department Care Team (Late st Contact Info) Description 03/16/2025 Lab Requisition [facility] - Pathology Lab [address] [place] [address] Moises Villatoro MD [address] [phone] Illness, unspecified Social History Tobacco Use Types Packs/Day Years Used Date Smoking Tobacco: Never Assessed Comments Unknown Sex and Gender Information Value Date Recorded Sex Assigned at Not on file 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 Gender Identity Not on file Sexual Orientation Not on file documented as of this encounter Plan of Treatment Not on file documented as of this encounter Procedures Procedure Name Priority Date/Time Associated Diagnosis Comments PATHOLOGY TISSUE Routine 03/15/2025 9:40 AM CDT Illness, unspecified documented in this encounter Results * PATHOLOGY TISSUE (03/15/2025 9:40 AM CDT) Case Report Surgical Pathology Report Case: [id number] Authorizing Provider: Moises Villatoro MD Collected: 03/15/2025 09:40 AM Ordering Location: [facility] - Received: 03/16/2025 02:42 PM Pathology Lab Pathologist: Krysten Stevenson MD Specimen: Lymph Node Biopsy 04/16/2025 9:04 AM CUSTOMER SPECIALIST [facility] Final Diagnosis Lymph node, left axillary, excision: - Monocytoid B-cell proliferation in a background of follicular lymphoid hyperplasia; B-cell gene rearrangement analysis pending with addendum to follow (see comment) 04/16/2025 9:04 AM [facility] at 1026 CDT Microscopic [...] and EBV in situ hybridization is negative. [place] and lambda immunohistochemistry stains highlight a polyclonal population of plasma cells. C-Myc is positive in 5% or less of total nuclei with slightly increased expression in the monocytoid B cells. A Ki-67 stain highlights the expected increased proliferation index of the germinal centers and is more prominently expressed in the monocytoid B cells. The Ki-67 pattern overall favors a benign process. 04/16/2025 9:04 AM [facility] Clinical History Lymphadenopathy 04/16/2025 9:04 AM [facility] AP Comment Flow cytometry of th e lymph node identified a lambda predominant population (kappa:lambda ratio 0.7) of B-cells with CD23 expression ([id number]). In conjunction with the morphologic features, this [...] rearrangement analysis will be reported upon completion. 04/16/2025 9:04 AM [facility] Materials Received Received are 11 slide(s) labeled and 11 block(s) [id number] along with a copy of the outside pathology report. [place] [address] . All original materials are returned to the referring institution, along with a copy of our final report. 04/16/2025 9:04 AM [facility] Addendum 1 This addendum is issued to report the results of B-cell gene rearrangement analysis, performed by [employer]. Interpretation: Clonal immunoglobulin heavy chain (IGH) and kappa light chain (IGK) gene rearrangements were detected. Comment: In the proper context, the presence of clonal IGH and IGK gene rearrangement support a diagnosis of a B-cell neoplasm. However, in isolation to relevant clinical and morphologic information, this finding is not diagnostic. These results should be interpreted in the context of available clinical, morphologic, and immunophenotypic findings. Summary comment: The morphologic features of the left axillary lymph node are nondiagnostic for lymphoma. Flow cytometry of the lymph node was equivocal for a clonal population, and 3/5 regions evaluated on the B-cell gene rearrangement analysis were not associated with clonality. Given the above, an exuberant reactive/benign B-cell inflammatory infiltrate cannot be entirely excluded. The morphologic features, combined with the equivocal flow cytometry findings and molecular analysis, could also be associated with infectious processes such as Toxoplasma (cat scratch disease), EBV, CMV, and HIV. Immunohistochemistry stains for CMV and Toxoplasma are pending, the results of which will be reported as an additional addendum. Consider serologic evaluation for infectious organisms. 04/16/2025 9:04 AM [facility] Addendum electronically signed by Krysten Stevenson MD on 04/03/2025 at 1655 CDT Addendum 2 The CMV and toxoplas ma immunohistochemistry stains with reactive controls are negative. As the patient's lymphadenopathy is clinically suspicious for lymphoma (reportedly a 5 cm axillary lymph node is present), sampling of the most pathologically enlarged lymph node is recommended if reactive etiologies for lymphadenopathy have been excluded. This case was discussed with Dr. Mercado on 04/03/2025. 04/16/2025 9:04 AM [facility] Addendum electronically signed by Krysten Stevenson MD on 04/16/2025 at 0904 [facility] Pathologist Location at [facility] 04/16/2025 9:04 AM [facility] Disclaimer The performance characteristics of all immunohistochemical and indirect immunofluorescence stains (if any) cited in this report were determined by the Histopathology Laboratory of [facility]. Some of these tests were [...] and interpreted by the attending (teaching) pathologist. 04/16/2025 9:04 AM [facility] Embedded Images 04/16/2025 9:04 AM [facility] Pathology/Cytolo gy BIOPSY OF LYMPH NODE / Unknown 03/15/2025 9:40 AM CDT 03/16/2025 2:42 PM CDT us Moises Villatoro MD LAB - PATHOLOGY/CYTOLOGY ORDERAB LES Edited Result - Final [facility] [address] [place] [address], [facility] [phone] documented in this encounter Visit Diagnoses Diagnosis Illness, unspecified documented in this encounter
--- OUTSIDE RECORDS SUMMARY | 2025-05-15 16:12 | XMS_ITS | Clinical Summary ---
Author Organization [facility] Address [address] [facility] [place] [address] Care Team Providers Care Imaging Nurse Name Role Phone Unavailable Primary Care Provider Unavailabl e Source Comments [facility],non-owned Affiliates and Associated Physician Practices is amultiple site organization consisting of ambulatory clinics and hospital sitesin [place], [place], [place] and [place]. This disclosure is being madepursuant to the Care Everywhere program and may not contain all information available regarding this patient. Last updated 18.[facility] Encounters Date Type Department Care Team Description 03/16/2025 Lab Requisition [facility] - Pathology Lab [address] [place] [phone] Moises Villatoro MD Illness, unspecified 03/15/2025 Lab Requisition [facility] - Pathology Lab [address] [place] [phone] Moises Villatoro MD Localized enlarged lymph nodes from Last 3 Months Social History Tobacco Use Types Packs/Day Years Used Date Smoking Tobacco: Never Assessed Comments Unknown Sex and Gender Information Value Date Recorded Sex Assigned at Not on file 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 Gender Identity Not on file Sexual Orientation [...] CALENDAR YEAR 2024 COVID-19 VACCINE (1 - 2024-2 6 season) 2025 INFLUENZA VACCINE (#1) 2025 Respiratory [...] CDT) Case Report Surgical Pathology Report Case: [id number] Authorizing Provider: Moises Villatoro MD Collected: 03/15/2025 09:40 AM Ordering Location: [facility] - Received: 03/16/2025 02:42 PM Pathology Lab Pathologist: Krysten Stevenson MD Specimen: Lymph Node Biopsy 04/16/2025 9:04 AM [facility] Final Diagnosis Lymph node, left axillary, excision: - 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 [place] and lambda immunohistochemistry stains highlight a polyclonal [...] favors a benign process. 04/16/2025 9:04 AM [facility] Clinical History Lymphadenopathy 04/16/2025 9:04 AM [facility] AP Comment Flow cytometry of th e lymph node identified a lambda predominant population (kappa:lambda ratio 0.7) of B-cells with CD23 expression ([id number]). In conjunction with the morphologic features, this [...] be reported upon completion. 04/16/2025 9:04 AM [facility] Materials Received Received are 11 slide(s) labeled and 11 block(s) [id number] along with a copy of the outside pathology report. [place] [address] . All original materials are returned to the referring institution, along with a copy of our final report. 04/16/2025 9:04 AM [facility] Addendum 1 This addendum is issued to report the results of B-cell gene rearrangement analysis, performed by [facility]. Interpretation: Clonal immunoglobulin heavy chain (IGH) and [...] evaluation for infectious organisms. 04/16/2025 9:04 AM [facility] Addendum electronically signed by Krysten [...] Dr. Mercado on 04/03/2025. 04/16/2025 9:04 AM [facility] Addendum electronically signed by Krysten Stevenson MD on 04/16/2025 at 0904 [facility] Pathologist Location at [facility] 04/16/2025 9:04 AM [facility] Disclaimer The performance characteristics of all immunohistochemical and indirect immunofluorescence stains (if any) cited in this report were determined by the Histopathology Laboratory of [facility]. Some of these tests were developed [...] the attending (teaching) pathologist. 04/16/2025 9:04 AM [facility] Embedded Images 04/16/2025 9:04 AM [facility] Pathology/Cytolo gy BIOPSY OF LYMPH NODE / Unknown 03/15/2025 9:40 AM CDT 03/16/2025 2:42 PM CDT Moises Villatoro MD LAB - PATHOLOGY/CYTOLOGY ORDERAB LES Edited Result - Final [facility] [address] [place] [address], [facility] [phone] * FLOW CYTOMETRY TISSUE PANEL (03/15/2025 9:40 AM CDT) Case Report Flow Cytometry Case: [id number] Authorizing Provider: Moises Villatoro MD Collected: 03/15/2025 09:40 AM Ordering Location: [facility] - Received: 03/15/2025 12:56 PM Pathology Lab Pathologist: Dilan Pandya MD Specimen: Lymph Node 03/15/2025 3:03 PM [facility] Final Diagnosis Lymph node, flow cytometry: - Lambda light chain predominant B-cell population, suspicious for a clonal B-cell population (~60% of overall events) 03/15/2025 3:03 PM [facility] at 1503 CDT Flow [...] specimen has been reviewed for senior quality methods specialist purposes. 03/15/2025 3:03 PM [facility] Flow Cytometry Results Differential Result Comment Flow Cell Count /uL 64,800 Total Viability % 58.0 Lymphocytes % 95 Dim CD45 Region % 2 Monocytes % 0 Granulocytes % 3 03/15/2025 3:03 PM [facility] Reason for test Localized enlarged lymph nodes 785.6 03/15/2025 3:03 PM [facility] Client Specimen ID # [id number] 03/15/2025 3:03 PM [facility] Number of markers 17 were performed. A-2 Flow CD10 A-4 Flow CD20 A-5 Flow CD23 A-10 Flow CD2 A-11 Flow CD3 A-12 Flow CD4 A-16 Flow CD1a A-3 Flow CD19 A-6 Flow CD34 A-7 Flow CD45 A-13 Flow CD5 A-14 Flow CD7 A-15 Flow CD8 A-17 Flow CD30 A-8 [place]+CD19+ A-9 Lambda+CD19+ 03/15/2025 3:03 PM [facility] Pathologist Location at [facility] 03/15/2025 3:03 PM [facility] Disclaimer Test performed at [facility], [address] [place] [address], [address]. *The established laboratory minimum viability is 70%. [...] LAB - PATHOLOGY/CYTOLOGY ORDERAB LES Final Result Performing Organization Address City/State/[facility] Co de Phone Number [facility] [address] [phone] from Last 3 Months Insurance [facility]IC[facility] ADV
--- OUTSIDE RECORDS SUMMARY | 2025-05-15 16:12 | XMS_ITS | Encounter Summary ---
Author Organization [facility] Address [address] [place] [address] Care Team Providers Care Big Data Analytics Lead Name Role Phone Unavailable Primary Care Provider Unavailabl e Encounter Details Date Type Department Care Team (Late st Contact Info) Description 03/15/2025 Lab Requisition [facility] - Pathology Lab [address] [place] [address] Moises Villatoro MD [address] [phone] Localized enlarged lymph nodes Social History Tobacco Use Types Packs/Day Years Used Date Smoking Tobacco: Never Assessed Comments Unknown Sex and Gender Information Value Date Recorded Sex Assigned at Not on file 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 Gender Identity Not on file Sexual Orientation [...] AM CDT) Case Report Flow Cytometry Case: [id number] Authorizing Provider: Moises Villatoro MD Collected: 03/15/2025 09:40 AM Ordering Location: [facility] - Received: 03/15/2025 12:56 PM Pathology Lab Pathologist: Dilan Pandya MD Specimen: Lymph Node 03/15/2025 3:03 PM CDT [facility] Final Diagnosis Lymph node, flow cytometry: - Lambda light chain predominant B-cell population, suspicious for a clonal B-cell population (~60% of overall events) 03/15/2025 3:03 PM [facility] at 1503 CDT Flow [...] specimen has been reviewed for quality control director purposes. 03/15/2025 3:03 PM [facility] Flow Cytometry Results Differential Result Comment Flow Cell Count /uL 64,800 Total Viability % 58.0 Lymphocytes % 95 Dim CD45 Region % 2 Monocytes % 0 Granulocytes % 3 03/15/2025 3:03 PM [facility] Reason for test Localized enlarged lymph nodes 785.6 03/15/2025 3:03 PM [facility] Client Specimen ID # [id number] 03/15/2025 3:03 PM [facility] Number of markers 17 were performed. A-2 Flow CD10 A-4 Flow CD20 A-5 Flow CD23 A-10 Flow CD2 A-11 Flow CD3 A-12 Flow CD4 A-16 Flow CD1a A-3 Flow CD19 A-6 Flow CD34 A-7 Flow CD45 A-13 Flow CD5 A-14 Flow CD7 A-15 Flow CD8 A-17 Flow CD30 A-8 [place]+CD19+ A-9 Lambda+CD19+ 03/15/2025 3:03 PM [facility] Pathologist Location at [facility] 03/15/2025 3:03 PM [facility] Disclaimer Test performed at [facility], [address] [place] [address], [address]. *The established laboratory minimum viability is 70%. [...] complexity clinical testing. 03/15/2025 3:03 PM CDT [facility] Embedded Images 3:03 PM CDT [facility] Pathology/Cytolo gy ENTIRE LYMPH NODE / Unknown 03/15/2025 9:40 AM CDT 03/15/2025 12:56 PM CDT us Moises Villatoro MD LAB - PATHOLOGY/CYTOLOGY ORDERAB LES Final Result [facility] [address] [phone] documented in this encounter Visit Diagnoses Diagnosis Localized enlarged lymph nodes Enlargement of lymph nodes documented in this encounter
[2025-05-15 16:21] LABS: Alanine Aminotransferase 24 U/L (6-35); Albumin Level 4.3 g/dL (3.5-5.1); Alkaline Phosphatase 82 U/L (38-126); Anion Gap 5 mmol/L (4-12); Aspartate Amino Transferase 71 U/L (14-36); Bilirubin,Total 0.4 mg/dL (0.2-1.3); Blood Urea Nitrogen 15 mg/dL (7-17); Calcium 8.9 mg/dL (8.4-10.2); Carbon Dioxide 28 mmol/L (22-30); Chloride 104 mmol/L (98-107); Estimated Glomerular Filt Rate > 60; Glucose 104 mg/dL (65-110); Potassium 3.8 mmol/L (3.4-5.0); Sodium 137 mmol/L (137-145); Total Protein 7.3 g/dL (6.3-8.2)
== END 2025-05-15 14:48 | disposition home or self-care (01) ==
PROVIDERS: PCP Family Medicine; Visit Provider Internal Medicine Hematology & Oncology
DX: C85.14 Unspecified B-cell lymphoma, lymph nodes of axilla and upper limb (principal)
CPT/HCPCS: 36415; 80053; 83615; 85025